=== PATIENT | female | born 1950 | race Caucasian/White ===

== ENCOUNTER 2020-01-09 08:48 | Emergency (ER) | payer MEDICARE, OTHER, SELFPAY ==
[2020-01-09 09:00] VITALS: BP 109/38; PULSE 118; RESP 20; TEMP 36.7; O2SAT 100
[2020-01-09 09:20] VITALS: BP 98/40
--- NOTE | 2020-01-09 09:23 | ED.GENADULT ---
HPI - General Adult General Chief complaint: Skin/Abscess/Foreign Body Stated complaint: Rash Time Seen by Provider: 01/09/20 09:24 Source: patient History of Present Illness HPI narrative: Patient presents with a worsening rash and hives that started yesterday. Patient states 2 weeks ago she had a surgical procedure which removed a mass from her right vaginal area. Patient states she finished Septra antibiotic 1 week ago. Patient denies any new soaps any new detergents or anything new in her lifestyle. Patient states she has increased swelling to both of her feet which is unusual for her. Patient states she could hardly get on her shoes due to the swelling in her feet. Patient has generalized body aches and discomfort patient states she feels bad. Patient reports she is short of breath at times. Patient denies taking thing [id number]-pnn-osfjotq for her symptoms. Related Data Home Medications Medication Instructions Recorded Confirmed allopurinol 100 mg PO BID 10/06/19 01/09/20 aspirin 81 mg PO DAILY 10/06/19 01/09/20 [id number]-rzpcbgceg-iektjv-zinc tablet PO 10/06/19 cholecalciferol (vitamin D3) unit 10/06/19 [Vitamin D3] docosahexaenoic acid-epa [Fish Oil] 1 cap PO DAILY 10/06/19 01/09/20 omeprazole 40 mg PO BID 10/06/19 01/09/20 paroxetine HCl 10 mg tablet 10 mg PO DAILY 12/30/19 01/09/20 pravastatin 20 mg tablet 20 mg PO DAILY 01/01/20 01/09/20 tramadol 50 mg tablet 50 mg PO Q6H PRN 01/01/20 01/09/20 hydrocodone 10 mg-acetaminophen 1 tablet PO Q8H PRN 01/04/20 01/09/20 325 mg tablet Allergies Allergy/AdvReac Type Severity Reaction Status Date / Time NSAIDS (Non-Steroidal AdvReac Unknown HX KIDNEY Verified 01/09/20 08:59 Anti-Inflamma DISEASE Review of Systems Review of Systems: Narrative: CONSTITUTIONAL: Denies fever, chills, or sweats. EYES: Denies visual changes, redness, or discharge. ENT: Denies rhinorrhea, congestion, sore throat, or otalgia. CARDIOVASCULAR: Denies chest pain, palpitations, reports bilateral edema to both lower extremities. RESPIRATORY: Denies cough or dyspnea. GASTROINTESTINAL: Denies abdominal pain, nausea, vomiting, or diarrhea. GENITOURINARY: Denies dysuria or hematuria. SKIN:-Hives to back and abdomen both lower extremities started yesterday- Reports generalized pain, joint pain, and myalgia. NEUROLOGIC: Denies headache, numbness, or weakness. PSYCHIATRIC: Denies anxiety or depression. [facility] Past Medical History Medical History Anxiety BRCA gene mutation positive GERD (gastroesophageal reflux disease) High cholesterol History of ovarian cancer Hypothyroidism Kidney disease Surgical History Surgical History H/O dilation and curettage H/O foot surgery H/O: hysterectomy History of prophylactic mastectomy of both breasts Hx of BSO (bilateral salpingo-oophorectomy) Family History Family History Sibling Family history of malignant neoplasm of breast in first degree relative Family history of cardiovascular disease Family history of malignant neoplasm of breast Family history of malignant neoplasm of ovary Mother Family history of congestive heart failure Family history of obesity Family history of osteoarthritis Family history of anemia Family history of cardiovascular disease Cerebrovascular accident Father Family history of Parkinson's disease Family history of cardiovascular disease Family history of glaucoma Family history of dementia, Onset Age: 92 Other Depression Family history of arthritis Family history of gout Family history of heart disease in male family member before age 55 Family history of malignant neoplasm Hypertension Social History Social History Smoking status: Former smoker Second hand tobacco smoke expos
== END 2020-01-09 09:30 | disposition short-term general hospital (02) ==
PROVIDERS: Emergency Provider Nurse Practitioner Family; PCP Internal Medicine
DX: L50.0 Allergic urticaria (principal); R60.9 Edema, unspecified; R00.0 Tachycardia, unspecified; R03.1 Nonspecific low blood-pressure reading; Z87.891 Personal history of nicotine dependence; Z90.13 Acquired absence of bilateral breasts and nipples; F41.9 Anxiety disorder, unspecified; K21.9 Gastro-esophageal reflux disease without esophagitis; E78.00 Pure hypercholesterolemia, unspecified; E03.9 Hypothyroidism, unspecified; Z85.43 Personal history of malignant neoplasm of ovary
CPT/HCPCS: 99212; G0463

== ENCOUNTER 2020-07-26 11:02 | Outpatient (CLI) | payer MEDICARE, OTHER, SELFPAY ==
--- NOTE | ~2020-07-26 | US_ITS ---
EXAMINATION: US retroperitoneal duplex ltd DATE: 07/26/2020 11:53 INDICATION: Chronic kidney disease. TECHNIQUE: Multiple grayscale, color Doppler, and pulsed Doppler images of the kidneys and renal soumya yao were obtained. COMPARISON: None. FINDINGS: The aorta peak systolic velocity is 134 cm/s. The right renal artery peak systolic velocity is 344 cm /s in the proximal segment, 170 cm/s in the mid segment, and 198 cm/s in the distal segment. The left renal artery peak systolic velocity is 146 cm/s in the proximal segment, 118 cm/s in the mid segment , and 146 cm/s in the distal segment. IMPRESSION: 1. Significantly elevated peak systolic velocities in the proximal right renal artery consistent wit h hemodynamically significant stenosis of >50-60%. 2. No significant stenosis at the left renal artery. Reviewed, dictated and finalized at location A. IMPRESSION: 1. Significantly elevated peak systolic velocities in the proximal right renal artery consistent with hemodynamically significant stenosis of >50-60%. 2. No significant stenosis at the left renal artery.
== END 2020-07-26 11:03 | disposition home or self-care (01) ==
PROVIDERS: Visit Provider Internal Medicine
DX: N18.3 Chronic kidney disease, stage 3 (moderate) (principal); N17.8 Other acute kidney failure
CPT/HCPCS: 93976

== ENCOUNTER 2020-08-29 08:03 | Outpatient (CLI) | payer MEDICARE, OTHER, SELFPAY ==
--- NOTE | ~2020-08-29 | MR_ITS ---
EXAMINATION: MR lumbar spine wo con DATE: 08/29/2020 09:15 INDICATION: Radiculopathy, lumbosacral region. TECHNIQUE: Magnetic resonance imaging (MRI) of the lumbar spine was performed without intravenous con trast. Sequences included sagittal T2-weighted FSE, sagittal T2-weighted FS FSE, sagittal T1-weighted FSE, and axial T2-weighted FSE. COMPARISON: Lumbar spine MRI 11/18/2017 FINDINGS: There is 3 mm retrolisthesis of L2 on L3, 3 mm anterolisthesis of L3 on L4, and 5 mm dina listhesis of L4 on L5. Vertebral body heights are normal. There is severely decreased disc height at T11-T12 and mildly decreased disc height at L3-L4 and L4-L5. The distal spinal cord signal intensity is normal. The conus medullaris is at L1. The following disc levels are specifically discussed: L1-L2: The disc is bulging. There is moderate bilateral facet joint osteoarthritis. There is no neura l foraminal stenosis. There is mild central canal stenosis. L2-L3: The disc is bulging and has an annular fissure. There is moderate right and mild left facet camelia int osteoarthritis. There is mild right and moderate left neural foraminal stenosis. There is mild ce ntral canal stenosis. L3-L4: The disc is bulging. There is severe bilateral facet joint osteoarthritis. There is mild bilat eral neural foraminal stenosis. There is mild central canal stenosis. L4-L5: The disc does not extend beyond the endplate margin. There is severe bilateral facet joint ost eoarthritis. There is mild bilateral neural foraminal stenosis. There is mild central canal stenosis. L5-S1: The disc does not extend beyond the endplate margin. There is severe bilateral facet joint ost eoarthritis. There is no neural foraminal stenosis. There is no central canal stenosis. IMPRESSION: 1. Moderate lumbar spondylosis, stable from 11/18/2017. Reviewed, dictated and finalized at location A.
== END 2020-08-29 08:04 | disposition home or self-care (01) ==
PROVIDERS: PCP Internal Medicine; Visit Provider Nurse Practitioner Adult Health
DX: M47.816 Spondylosis without myelopathy or radiculopathy, lumbar region (principal)
CPT/HCPCS: 72148

== ENCOUNTER 2021-01-18 08:59 | Outpatient (CLI) | payer MEDICARE, OTHER, SELFPAY | END 2021-01-18 09:00 | disposition home or self-care (01) | LOC: ANHCOVIDVC 08:59 | PROVIDERS: PCP Internal Medicine | DX: Z23 Encounter for immunization (principal) | CPT/HCPCS: 0001A; 91300 ==

== ENCOUNTER 2021-02-08 09:08 | Outpatient (CLI) | payer MEDICARE, OTHER, SELFPAY | END 2021-02-08 09:09 | LOC: ANHCOVIDVC 09:08 | PROVIDERS: PCP Internal Medicine | DX: Z23 Encounter for immunization (principal) | CPT/HCPCS: 0002A; 91300 ==

== ENCOUNTER 2021-03-16 12:09 | Outpatient (CLI) | payer MEDICARE, OTHER, SELFPAY ==
--- NOTE | ~2021-03-16 | CT_ITS ---
EXAMINATION: CT abdomen pelvis wo con EXAM DATE: 03/16/2021 12:35 INDICATION: R10.84 - Generalized abdominal pain. TECHNIQUE: Spiral CT of the abdomen and pelvis was performed without contrast. Axial, coronal and s agittal images of the abdomen and pelvis were reviewed. The dose-length product (DLP) for this exami nation was 926.38 mGy-cm. The exposure was tailored according to patient size (auto mA exposure cont rol), and iterative reconstruction (ASIR) was used as additional dose reduction technique. Comparison is made to prior examination from 10/15/2019. FINDINGS: The liver, spleen, adrenal glands and pancreas are unremarkable. Gallbladder is unremarkab le. No biliary obstruction. Portal and splenic veins are patent. Kidneys enhance symmetrically. T here is no hydronephrosis. The uterus is not identified and has likely been surgically resected. Again there is a slightly hyperdense 2.3 by 2.1 cm right peroneal mass, probably Bartholin's gland pr oteinaceous cyst. Stability goes against this being Bartholin's gland tumor. The bladder is unremark able. There is no retroperitoneal or pelvic lymphadenopathy. There is moderate to severe scattered arteriosclerotic disease. Abdominal aorta is normal in caliber. The appendix is not positively visualized. There is no pericecal inflammatory change to suggest appe ndicitis. There is mild sigmoid predominant colonic diverticulosis. There is no adjacent inflammator y change to suggest diverticulitis. The stomach and small bowel are unremarkable. There is expected amount of colonic stool. No free intraperitoneal gas. The heart is normal in size. There are no pericardial or pleural effusions. The lung bases are unremarkable. There are no osteoblastic or ost eolytic lesions identified. Advanced lower lumbar facet arthropathy. IMPRESSION: 1. No acute intra-abdominal findings. 2. Stable right peroneal mass, likely Bartholin's gland origin. 3. Colonic diverticulosis. Reviewed, dictated and finalized at location B.
[2021-03-16 13:27] LABS: Basophils Percent Auto 0.3 % (0.2-1.2); Eosinophils Absolute Auto 0.4 K/mm3 (0-0.3); Eosinophils Percent Auto 5.8 % (0-4.4); Hematocrit 36.7 % (37.0-47.0); Hemoglobin 12.1 g/dL (12.0-15.0); Immature Granulocyte Absolute 0.02 K/mm3 (0.00-0.031); Immature Granulocyte Percent A 0.3 % (0-0.5); Lymphocytes Absolute Auto 2.16 K/mm3 (0.9-3.2); Lymphocytes Percent Auto 32.1 % (18.3-44.2); Mean Corpuscular Hemoglobin 29.3 pg (26-34); Mean Corpuscular Volume 88.9 fl (80-100); Monocytes Absolute Auto 0.4 K/mm3 (0.1-0.6); Monocytes Percent Auto 5.6 % (2.6-8.5); Neutrophils Absolute Auto 3.8 K/mm3 (1.3-6.7); Neutrophils Percent Auto 55.9 % (45.5-73.1); Platelet Count Result 213 k/mm3 (150-375); Red Blood Count 4.13 M/mm3 (4.2-5.4); Red Cell Distribution Width 14.6 % (11.5-14.5); White Blood Count 6.7 K/mm3 (4.5-10.0)
[2021-03-16 13:42] LABS: Alanine Aminotransferase 14 U/L (4-35); Albumin Level 4.6 g/dL (3.5-5.1); Alkaline Phosphatase 82 U/L (38-126); Anion Gap 5 mmol/L (8-16); Aspartate Amino Transferase 26 U/L (14-36); Bilirubin,Total 0.6 mg/dL (0.2-1.3); Blood Urea Nitrogen 28 mg/dL (7-17); Calcium 9.9 mg/dL (8.4-10.2); Carbon Dioxide 30 mmol/L (22-30); Chloride 104 mmol/L (98-107); Cholesterol 112 mg/dL (0-200); Estimated Glomerular Filt Rate 37; Glucose 98 mg/dL (65-105); HDL Direct 37 mg/dL; Potassium 5.1 mmol/L (3.4-5.0); Sodium 139 mmol/L (137-145); Triglycerides 131 mg/dL (<150)
[2021-03-16 13:53] LABS: LDL Cholesterol Direct 51 mg/dL
== END 2021-03-16 12:10 | disposition home or self-care (01) ==
PROVIDERS: PCP Internal Medicine; Visit Provider Internal Medicine
DX: E78.2 Mixed hyperlipidemia (principal); F33.0 Major depressive disorder, recurrent, mild; R10.84 Generalized abdominal pain; R73.01 Impaired fasting glucose; K57.30 Diverticulosis of large intestine without perforation or abscess without bleeding
CPT/HCPCS: 36415; 74176; 80053; 80061; 85025

== ENCOUNTER → 2021-04-08 03:54 | Outpatient (CLI) | payer MEDICARE, OTHER, SELFPAY ==
[2021-04-08 19:46] LABS: SARS-CoV-2 RNA PCR Negative
== END ==
PROVIDERS: PCP Internal Medicine; Visit Provider Internal Medicine Gastroenterology
DX: Z01.812 Encounter for preprocedural laboratory examination (principal); Z20.822 Contact with and (suspected) exposure to COVID-19
CPT/HCPCS: C9803; U0003; U0005

== ENCOUNTER 2021-04-11 02:04 | Day surgery (SDC) | payer MEDICARE, OTHER, SELFPAY ==
[2021-04-07 09:41] VITALS: BMI 31.3
[2021-04-11 08:48] VITALS: BP 140/63; PULSE 73; RESP 20; TEMP 35.9; O2SAT 99; BMI 31.5
--- NOTE | 2021-04-11 08:58 | WPDANESEPPF ---
Anes - Initial Pre Proc Eval Procedure: Operation Date: 04/11/21 10:00 Proposed Procedures p Esophagogastroduodenoscopy - Miguel Davison MD Date/Time: 04/11/21 08:58 Surgeon: Miguel Davison MD Pre Op Diagnosis: peptic ulcer disease Patient Data Age: 70 Gender: F Height: 5 ft 5 in Weight: 86 kg Last Vital Signs Temp 96.6 F L 04/11/21 08:48 Pulse 73 04/11/21 08:48 Resp 20 04/11/21 08:48 BP 140/63 04/11/21 08:48 Pulse Ox 99 04/11/21 08:48 Allergies Allergy/AdvReac Type Severity Reaction Status Date / Time NSAIDS (Non-Steroidal AdvReac Unknown HX KIDNEY Verified 03/16/21 11:12 Anti-Inflamma DISEASE Home Medications Medication Instructions Recorded Confirmed Type aspirin 81 mg PO DAILY 10/06/19 04/07/21 History nnsqziu-rgnnoptuw-gzghev-zinc 1 tablet PO TID 10/06/19 04/07/21 History hydrocodone 5 mg-acetaminophen 325 1 tablet PO TID PRN 07/11/20 04/07/21 History mg tablet tramadol 50 mg tablet 100 mg PO BID PRN tablet 07/11/20 04/07/21 History sucralfate 1 gram tablet 1 g PO BID #60 tablet 03/16/21 04/07/21 Rx gabapentin 300 mg capsule 300 mg PO TID #360 cap 03/31/21 04/07/21 Rx allopurinol 200 mg PO DAILY 04/07/21 04/07/21 History cholecalciferol (vitamin D3) 100 mcg PO DAILY 04/07/21 04/07/21 History icosapent ethyl [Vascepa] 4 g PO BID 04/07/21 04/07/21 History levothyroxine [Synthroid] 88 mcg PO DAILY 04/07/21 04/07/21 History omeprazole 40 mg PO BID 04/07/21 04/07/21 History paroxetine HCl 10 mg PO DAILY 04/07/21 04/07/21 History rosuvastatin [Crestor] 20 mg PO DAILY 04/07/21 04/07/21 History trazodone 100 mg PO HS 04/07/21 04/07/21 History Patient hx anesthesia problems: none Family hx anesthesia problems: none PMFSH Past Medical History Medical History (Updated 03/16/21 @ 14:21 by Newton Godwin MD) Acquired hypothyroidism Anxiety BRCA gene mutation positive Chronic obstructive pulmonary disease Chronic pain syndrome Essential hypertension Gastroesophageal reflux disease Generalized anxiety disorder GERD (gastroesophageal reflux disease) High cholesterol History of gout History of ovarian cancer Hx of ovarian cancer Hypothyroidism Kidney disease Mixed hyperlipidemia GISSEL (obstructive sleep apnea) Osteoporosis PAD (peripheral artery disease) 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 Pulmonary emphysema Stage 3 chronic kidney disease Vitamin D deficiency, unspecified Surgical History Surgical History H/O dilation and curettage H/O foot surgery H/O: hysterectomy History of prophylactic mastectomy of both breasts Hx of BSO (bilateral salpingo-oophorectomy) Family History Family History Sibling Family history of malignant neoplasm of breast in first degree relative Family history of cardiovascular disease Family history of malignant neoplasm of breast Family history of malignant neoplasm of ovary Mother Family history of congestive heart failure Family history of obesity Family history of osteoarthritis Family history of anemia Family history of cardiovascular disease Cerebrovascular accident Father Family history of Parkinson's disease Family history of cardiovascular disease Family history of glaucoma Family history of dementia, Onset Age: 92 Other Depression Family history of arthritis Family history of gout Family history of heart disease in male family member before age 55 Family history of malignant neoplasm Hypertension Social History Social History (Updated 03/16/21 @ 11:15 by Idalmis Estevez MA) Smoking packs per day: 1 Smoking cigarettes per day: 20.0 Years smoked: 10 Smoking pack-years: 10.00 Smoking status: Former smoker Tobacco type: cigarettes Second hand tobacco smoke exposure: Yes Smoking end date: 11/11/77 Alcohol intake: n
--- NOTE | 2021-04-11 08:58 | WPDGICN ---
Assessment and Plan Assessment and plan (1) Anxiety: Code(s): F41.9 - Anxiety disorder, unspecified Status: Acute (2) Generalized abdominal pain: Code(s): R10.84 - Generalized abdominal pain Status: Acute Assessment and Plan: Patient has ongoing history of generalized abdominal pain. She has narcotics which she takes for back pain which she states it alleviates her epigastric pain. she currently notices significant bloating associated with this pain which could represent change in bowel habits. (3) Epigastric abdominal pain: Code(s): R10.13 - Epigastric pain Status: Acute Assessment and Plan: Patient has a history of abdominal pain but epigastric pain has worsened over the last month. For this reason EGD is requested. Further recommendations will be given after endoscopy patient does give a history of acid reflux disease and been maintained on proton pump inhibitor until this point. (4) Hx of ovarian cancer: Code(s): Z85.43 - Personal history of malignant neoplasm of ovary Status: Acute GI Consult Note Consult date/time: 04/11/21 08:58 HPI: Jacki Oreilly is a 70 year old female presents for EGD. Seen in evaluation at the request Dr. Modi. Patient has a long history of abdominal discomfort. Over the last 1 month abdominal pain is worsened predominantly in the epigastric area. She states that she has a history of acid reflux which will affect her voice maker or she has substernal burning. Currently takes proton pump inhibitor. she denies any bleeding or weight loss. A CT scan was performed recently was unremarkable. Patient has a past history of ovarian cancer resected for a cure. She has a history of generalized anxiety disorder. An EGD has been requested will be performed today. Review of Systems Review of Systems: All systems reviewed & are unremarkable except as noted in HPI and below PMFSH Past Medical History Medical History (Updated 04/11/21 @ 09:03 by Miguel Davison MD) Acquired hypothyroidism Anxiety BRCA gene mutation positive Chronic obstructive pulmonary disease Chronic pain syndrome Essential hypertension Gastroesophageal reflux disease Generalized anxiety disorder GERD (gastroesophageal reflux disease) High cholesterol History of gout History of ovarian cancer Hx of ovarian cancer Hypothyroidism Kidney disease Mixed hyperlipidemia GISSEL (obstructive sleep apnea) Osteoporosis PAD (peripheral artery disease) 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 Pulmonary emphysema Stage 3 chronic kidney disease Vitamin D deficiency, unspecified Surgical History Surgical History H/O dilation and curettage H/O foot surgery H/O: hysterectomy History of prophylactic mastectomy of both breasts Hx of BSO (bilateral salpingo-oophorectomy) Family History Family History Sibling Family history of malignant neoplasm of breast in first degree relative Family history of cardiovascular disease Family history of malignant neoplasm of breast Family history of malignant neoplasm of ovary Mother Family history of congestive heart failure Family history of obesity Family history of osteoarthritis Family history of anemia Family history of cardiovascular disease Cerebrovascular accident Father Family history of Parkinson's disease Family history of cardiovascular disease Family history of glaucoma Family history of dementia, Onset Age: 92 Other Depression Family history of arthritis Family history of gout Family history of heart disease in male family member before age 55 Family history of malignant neoplasm Hypertension Social History Social History (Updated 03/16/21 @ 11:15 by Idalmis Estevez MA) Smoking packs per day: 1 Smoking cigarettes per
[2021-04-11] MEDS: LACTATED RINGERS 1,000 ML 150 ML IV CONT (09:03)
[2021-04-11] MEDS: BENZOCAINE (*SP) 60 ML SPRAY CAN (HURRICAINE) 1 SPRAY MUCOUS MEM (09:59)
[2021-04-11 10:07] VITALS: BP 131/64; PULSE 61; RESP 17; O2SAT 100
[2021-04-11 10:17] VITALS: BP 113/61; PULSE 62; RESP 21; O2SAT 97
[2021-04-11 10:27] VITALS: BP 109/83; PULSE 63; RESP 26; O2SAT 100
[2021-04-11 10:37] VITALS: BP 151/65; PULSE 67; RESP 25; O2SAT 100
== END 2021-04-11 10:53 | disposition home or self-care (01) ==
PROVIDERS: PCP Internal Medicine; Visit Provider Internal Medicine Gastroenterology
PROC: 0DJ08ZZ Inspection of Upper Intestinal Tract, Via Natural or Artificial Opening Endoscopic (ICD-10-PCS; CPT 43235; principal; 2021-04-11 10:00)
DX: R10.13 Epigastric pain (principal); F41.9 Anxiety disorder, unspecified; I12.9 Hypertensive chronic kidney disease with stage 1 through stage 4 chronic kidney disease, or unspecified chronic kidney disease; N18.30 Chronic kidney disease, stage 3 unspecified; R10.84 Generalized abdominal pain; Z85.43 Personal history of malignant neoplasm of ovary; E55.9 Vitamin D deficiency, unspecified; E03.9 Hypothyroidism, unspecified; E78.2 Mixed hyperlipidemia; M81.0 Age-related osteoporosis without current pathological fracture; G47.33 Obstructive sleep apnea (adult) (pediatric); J43.9 Emphysema, unspecified; I73.9 Peripheral vascular disease, unspecified; Z87.891 Personal history of nicotine dependence; Z79.82 Long term (current) use of aspirin; K27.9 Peptic ulcer, site unspecified, unspecified as acute or chronic, without hemorrhage or perforation; E66.9 Obesity, unspecified; Z68.31 Body mass index [BMI] 31.0-31.9, adult
CPT/HCPCS: 43239; 87081; J2001; J2704; J7120

== ENCOUNTER 2021-08-11 10:33 | Emergency (ER) | payer MEDICARE, OTHER, SELFPAY ==
[2021-08-11 11:13] VITALS: BP 150/54; PULSE 94; RESP 20; TEMP 36.8; O2SAT 98
--- NOTE | 2021-08-11 12:20 | ED.FEMALEGU ---
HPI - Female Genitourinary General Chief complaint: Urogenital-Female Stated complaint: URINARY PROBLEM Time Seen by Provider: 08/11/21 12:15 Source: patient, RN notes reviewed and old records reviewed Mode of arrival: ambulatory Limitations: no limitations History of Present Illness HPI Narrative: 71-year-old female who presents to [facility] with complaints of suprapubic tenderness and pressure and flank discomfort bilaterally starting yesterday afternoon, Patient denies any burning with urination but has been having frequency and urgency with her urine stream. Patient reports taking Azo for her symptoms. Patient also states that she has kidney disease and can not take any NSAIDS and is ovarian cancer survivor. Patient denies any known fevers, chills or sweats, no nausea or vomiting or diarrhea. She reports no vaginal discharge or any itching, denies any concern for STD exposure. MD elicited complaint: dysuria, UTI and flank pain Related Data Home Medications Medication Instructions Recorded Confirmed aspirin 81 mg PO DAILY 10/06/19 08/11/21 suafocv-ytnuveskn-jhmkpv-zinc 1 tablet PO TID 10/06/19 08/11/21 hydrocodone 5 mg-acetaminophen 325 1 tablet PO TID PRN 07/11/20 08/11/21 mg tablet tramadol 50 mg tablet 100 mg PO BID PRN tablet 07/11/20 08/11/21 allopurinol 200 mg PO DAILY 04/07/21 08/11/21 cholecalciferol (vitamin D3) 100 mcg PO DAILY 04/07/21 08/11/21 icosapent ethyl [Vascepa] 4 g PO BID 04/07/21 08/11/21 paroxetine HCl 10 mg PO DAILY 04/07/21 08/11/21 rosuvastatin [Crestor] 20 mg PO DAILY 04/07/21 08/11/21 trazodone 100 mg PO HS 04/07/21 08/11/21 mecobalamin (vitamin B12) See Rx Instructions .ROUTE .COMPLEX 07/31/21 omeprazole 40 mg PO DAILY 08/11/21 08/11/21 Allergies Allergy/AdvReac Type Severity Reaction Status Date / Time NSAIDS (Non-Steroidal AdvReac Unknown HX KIDNEY Verified 07/31/21 08:03 Anti-Inflamma DISEASE Review of Systems Review of Systems: CONSTITUTIONAL: Denies fever, chills, or sweats. EYES: Denies visual changes, redness, or discharge. ENT: Denies rhinorrhea, congestion, sore throat, or otalgia. CARDIOVASCULAR: Denies chest pain, palpitations, or edema. RESPIRATORY: Denies cough or dyspnea. GASTROINTESTINAL: Reports suprapubic abdominal pain, nausea, vomiting, or diarrhea. GENITOURINARY: Positive dysuria or hematuria. SKIN: Denies rash or itching. MUSCULOSKELETAL:Positive for bilateral flank back pain, joint pain, or myalgia. NEUROLOGIC: Denies headache, numbness, or weakness. PSYCHIATRIC Positive history of anxiety or depression. 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
== END 2021-08-11 12:30 | disposition home or self-care (01) ==
PROVIDERS: Emergency Provider Registered Nurse
DX: N39.0 Urinary tract infection, site not specified (principal); Z87.891 Personal history of nicotine dependence; E03.9 Hypothyroidism, unspecified; J44.9 Chronic obstructive pulmonary disease, unspecified; I10 Essential (primary) hypertension; K21.9 Gastro-esophageal reflux disease without esophagitis; E78.00 Pure hypercholesterolemia, unspecified; M10.9 Gout, unspecified; E78.2 Mixed hyperlipidemia; G47.33 Obstructive sleep apnea (adult) (pediatric); M81.0 Age-related osteoporosis without current pathological fracture; I73.9 Peripheral vascular disease, unspecified; M19.90 Unspecified osteoarthritis, unspecified site; I12.9 Hypertensive chronic kidney disease with stage 1 through stage 4 chronic kidney disease, or unspecified chronic kidney disease; N18.30 Chronic kidney disease, stage 3 unspecified; E55.9 Vitamin D deficiency, unspecified
CPT/HCPCS: 81003; 87086; 87088; 99213; G0463

== ENCOUNTER 2021-09-14 07:59 | Outpatient (CLI) | payer MEDICARE, OTHER, SELFPAY ==
--- NOTE | 2021-09-14 08:00 | ECG_ITS ---
Measurements Intervals Unity Rate: 63 P: 72 VA: 155 QRS: 13 QRSD: 87 T: 90 QT: 397 QTc: 407 Interpretive Statements SINUS RHYTHM POSSIBLE LEFT ATRIAL ENLARGEMENT BORDERLINE R WAVE PROGRESSION, ANTERIOR LEADS BORDERLINE T WAVE ABNORMALITY- HIGH LATERAL LEADS BASELINE ARTIFACT- I, AVL, V4-V6 BORDERLINE ECG Electronically Signed On 09-14-2021 9:05:53 CDT by Armin Nunez D.O.
== END 2021-09-14 08:00 | disposition home or self-care (01) ==
LOC: ANHSURGERY 08:03
PROVIDERS: Visit Provider Surgery Plastic and Reconstructive Surgery
DX: E78.00 Pure hypercholesterolemia, unspecified (principal); Z01.818 Encounter for other preprocedural examination; R94.31 Abnormal electrocardiogram [ECG] [EKG]
CPT/HCPCS: 93005

== ENCOUNTER 2021-09-15 03:05 | Day surgery (SDC) | payer MEDICARE, OTHER, SELFPAY ==
--- NOTE | 2021-09-13 08:48 | PC.NURSE ---
Report to the Outpatient Waiting Room, entrance under the green pavilion located off [facility], at time ___1100_ on date _[id number]_. OR Time: __1300__. - You and your visitor will be asked a series of questions to screen for COVID 19 for your protection. - A mask is required within the hospital. - Only one visitor is allowed at this time. Patient visitors will be guided where to wait when not with patient. Preoperative COVID Testing Requirements: No COVID Test needed if: (proof is required; if not received patient will have Rapid Test prior to entry) - Patient has received COVID Vaccine at least 14 days prior to procedure date or - Patient has positive COVID test result within last 90 days of surgery date. COVID Test needed if above criteria is not met If not COVID vaccinated a COVID test must be conducted within 72 hours of surgery and patient is asked to isolate self from time of testing until procedure. You will go to the [facility] for your COVID testing. The [facility] site is located at the corner of [address] [facility]. You will only be called if COVID results are positive and your surgeon may reschedule your elective surgery date. Patients may have clear liquids (water, carbonated beverages, clear teas, apple juice) until 3 hours prior to surgery with a maximum of 20 ounces. - No food from midnight until time of surgery - Infants may have breast milk until 4 hours before surgery, infant formula 6 hours prior to surgery. - Children will be allowed to drink immediately following surgery. If applicable, please bring a bottle or sippy cup to assist with drinking. Juice, water, soda, and popsicles are readily available. For infants on formula, please bring formula the day of surgery. Pacifiers are allowed. Take the following medications with a SIP of water the morning of surgery: _Levothyroxine, Gabapentin, Paroxetine, and pain med if needed._ Medications to discontinue per physician __Stop all vitamins now. Date to take last dose Please no make-up, nail kosovan, hairspray, perfume, deodorant, or body powder the day of surgery. No jewelry (including any body piercings) or valuables the day of surgery, leave them at home. Please take a shower or bath the night before, or the morning of, surgery with an antibacterial soap. Wear comfortable, loose fitting clothing. Children are encouraged to wear pajamas. - Jewelry must be removed prior to entering the operating room. Rings and piercings that are not removed may be cut off. - The hospital will not accept responsibility for valuables. - Please leave all valuables, including medications, at home the day of surgery. If you are going home after surgery, a licensed tractor trailer driver must drive you home. - NO public transportation without another adult. - We recommend that an adult stay with you for 24 hours following discharge. - We also recommend that you do not drive, make important decision, drink alcoholic beverages, or take any drugs that were not prescribed by your health care provider for at least 24 hours after your discharge time. For Pediatric surgeries, we recommend two adults accompany the child home (only one inside the building at this time). Follow any additional instructions given to you from your surgeon. Telephone instructions given to ___Patient_and asked if any additional questions and then verbalized understanding. Patient advised to call surgeon office or pre surgery nurse liaison [phone] if any additional questions.
[2021-09-13 08:55] VITALS: BMI 32.8
[2021-09-15] VITALS (8 sets, daily range): BP systolic 131–156; BP diastolic 54–67; PULSE 74–104; RESP 12–18; TEMP 36.4; O2SAT 97–100
[2021-09-15] MEDS: LACTATED RINGERS 1,000 ML 30 ML IV CONT ×2 (11:29→16:38)
[2021-09-15 11:54] LABS: Urine Cotinine NEGATIVE
--- NOTE | 2021-09-15 13:28 | WPDHPUPDATE1 ---
History and Physical Update Update Date/Time: 09/15/21 13:28 History and Physical has been reviewed, including an updated exam of the patient. There are NO changes in the patient's condition. Risks, benefits, and alternatives have been discussed and questions answered. Patient agrees to proceed with procedure.
--- NOTE | 2021-09-15 13:28 | SUR.PREOP ---
PATIENT UPDATED ON TIME DELAY
--- NOTE | 2021-09-15 13:44 | W.PM.PROC2 ---
Procedure Note - Detailed Date of Procedure 09/15/21 Pre-op Diagnosis hx of mastectomy Post-op Diagnosis same Procedure Performed 1. Bilateral breast fat grafting 2. Bilateral breast capsulorrhaphy. 3. Bilateral breast implant exchange Surgeon Alexy Coy MD Indications Bilateral mastectomy in 2003 with reconstruction (records unavailable). From her description it sounds like she had mastectomy and tissue expanders placed however never returned for permanent implants. July 22, 2017 bilateral exchange of tissue expanders for final implants, bilateral capsulorrhaphy, and fat grafting to bilateral breast by Dr. Mike. Findings Bilateral Natrelle Cohesive Silicone Implants 700cc Right - REF# [id number] SN [id number] Left - REF# [id number] SN [id number] Fat grafting Right - 110 cc Left - 90 cc Description of Procedure Preoperatively the risks, benefits, alternatives discussed in extensive detail. Want her to be very realistic about the risks involved as well as expectations. She understands the risk of implant loss which would lead to the need for replacement of expanders and further expansion with loss of reconstructive results. All questions answered to her satisfaction, she voiced an understanding. She would like proceed. She was taken to the operating room placed supine on the operating room table. Anesthesia provided by anesthesiology and prepped and draped in a standard sterile fashion. Surgical time-out was taken. 1% lidocaine and 0.25% Marcaine with epinephrine was used anesthetize as a field block. A thorough abdominal examination was completed. Stab incisions were made with 18 gauge needle and I tumesced with a tumescent solution. Once adequate time for hemostasis I completed suction lipectomy the 3 mm multi hole cannula into a gravity separation canister. We allowed for adequate separation for the central portion of adipose tissue. I then used a 1.2 mm cannula to inject of multiple planes and passes the subcutaneous tissue for fat grafting bilateral. Fifteen blade used to excise the previous scar and dissection was continued down until the implant capsule was identified. This was incised. Implant was removed. I completed a medial capsulotomy and laterally I did popcorn capsulorrhaphy. Copiously irrigated with saline solution on TUR tubing and verified strict hemostasis. I then irrigated with triple antibiotic Betadine solution. Wash my gloves. Using a no-touch technique and a Lopez funnel the implant was introduced into the pocket. This was closed using 2-0 Vicryl followed by 3-0 stratafix and running subcuticular 4-0 Monocryl and tissue glue. She was awoke and taken the PACU without difficulty. All instrument sponge counts were correct at the end of the case. Estimated Blood Loss 20 Drains No Packing No Pathology none sent Complications No immediate complications Condition stable Disposition PACU
--- NOTE | 2021-09-15 14:09 | WPDANESEPPF ---
Anes - Initial Pre Proc Eval Procedure: Operation Date: 09/15/21 13:00 Proposed Procedures p Bilateral Breast Implant Exchange - Alexy Coy MD s with Fat Grafting - Alexy Coy MD Date/Time: 09/15/21 14:09 Surgeon: Alexy Coy MD Pre Op Diagnosis: hx of mastectomy Patient Data Age: 71 Gender: F Height: 1.64 m Weight: 89.4 kg Last Vital Signs Pulse 74 09/15/21 11:22 Resp 18 09/15/21 11:22 BP 131/58 L 09/15/21 11:22 Pulse Ox 99 09/15/21 11:22 Allergies Allergy/AdvReac Type Severity Reaction Status Date / Time NSAIDS (Non-Steroidal AdvReac Unknown HX KIDNEY Verified 09/15/21 11:25 Anti-Inflamma DISEASE Home Medications Medication Instructions Recorded Confirmed Type aspirin 81 mg PO DAILY 10/06/19 09/15/21 History uazqcpj-aeawzfzkx-jsfvcx-zinc 1 tablet PO TID 10/06/19 09/15/21 History hydrocodone 5 mg-acetaminophen 325 1 tablet PO TID PRN 07/11/20 09/15/21 History mg tablet tramadol 50 mg tablet 100 mg PO BID PRN tablet 07/11/20 09/15/21 History gabapentin 300 mg capsule 300 mg PO TID #360 cap 03/31/21 09/15/21 Rx cholecalciferol (vitamin D3) 100 mcg PO DAILY 04/07/21 09/15/21 History rosuvastatin [Crestor] 20 mg PO DAILY 04/07/21 09/15/21 History trazodone 100 mg PO HS 04/07/21 09/15/21 History levothyroxine 88 mcg tablet 88 mcg PO DAILY #90 tablet 06/26/21 09/15/21 Rx mecobalamin (vitamin B12) See Rx Instructions .ROUTE .COMPLEX 07/31/21 09/15/21 History omeprazole 40 mg PO DAILY 08/11/21 09/15/21 History allopurinol 100 mg tablet 200 mg PO DAILY #180 tablet 08/24/21 09/15/21 Rx paroxetine HCl 10 mg tablet 10 mg PO DAILY #90 tablet 08/24/21 09/15/21 Rx sucralfate 1 gram tablet 1 g PO BID #60 tablet 08/24/21 09/15/21 Rx docusate sodium 100 mg capsule 100 mg PO BID #14 cap 08/30/21 09/15/21 Rx ondansetron HCl 4 mg tablet 4 mg PO Q6H PRN #30 tablet 08/30/21 09/15/21 Rx icosapent ethyl 1 gram capsule 4 g PO BID #360 cap 09/14/21 09/15/21 Rx Laboratory Tests 09/15/21 11:25 Cotinine Negative Patient hx anesthesia problems: none Family hx anesthesia problems: none Results Review: All pre-operative results and documents have been reviewed as part of the pre-operative evaluation. 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 Pulmonary emphysema Stage 3 chronic kidney disease Vitamin D deficiency, unspecified Surgical History Surgical History H/O dilation and curettage H/O foot surgery H/O: hysterectomy History of breast surgery History of prophylactic mastectomy of both breasts Hx of BSO (bilateral salpingo-oophorectomy) Family History Family History Sibling Family history of malignant neoplasm of breast in first degree relative Family history of cardiovascular disease Family history of malignant neoplasm of breast Family history of malignant neoplasm of ovary Mother Family history of congestive heart failure Family history of obesity Family history of osteoarthritis Family history of anemia Family history of cardiovascular disease Cerebrovascular accident Father Family history of Parkinson's disease Family history of cardiovascular disease Family history of glaucoma Family history of dementia, Onset Age: 92 Other
[2021-09-15] MEDS: ceFAZolin 2 GM/D5W 50 ML 2 GM/50 ML BAG IVPB (14:35)
[2021-09-15] MEDS: LACTATED RINGERS IRRIG 1,000 ML, LIDOCAINE HCL 1% LOCAL INJ 50 ML, EPINEPHrine HCL INJ ... INFILTRATE (15:19)
[2021-09-15] MEDS: LIDO 1%/EPINEPHRINE 1:100,000 50 ML VIAL 30 ML INFILTRATE (16:04)
[2021-09-15] MEDS: BUPIVACAINE HCL 0.25% PF 30 ML VIAL INFILTRATE (16:09)
[2021-09-15] MEDS: fentaNYL CITRATE INJ (*CRX) 100 MCG/2 ML VIAL 25 MCG IV PUSH ×2 (17:09→17:16)
[2021-09-15] MEDS: oxyCODONE HCL (*CRX) 5 MG TAB IR PO (18:17)
== END 2021-09-15 18:50 | disposition home or self-care (01) ==
PROVIDERS: Visit Provider Surgery Plastic and Reconstructive Surgery
PROC: (CPT 19342; principal; 2021-09-15 13:00)
PROC: (CPT 15769; 2021-09-15 13:00)
DX: Z42.1 Encounter for breast reconstruction following mastectomy (principal); Z85.3 Personal history of malignant neoplasm of breast; Z90.13 Acquired absence of bilateral breasts and nipples; N64.89 Other specified disorders of breast; N64.4 Mastodynia; E03.9 Hypothyroidism, unspecified; J44.9 Chronic obstructive pulmonary disease, unspecified; F41.1 Generalized anxiety disorder; G47.33 Obstructive sleep apnea (adult) (pediatric); I10 Essential (primary) hypertension; G89.4 Chronic pain syndrome; K21.9 Gastro-esophageal reflux disease without esophagitis; M10.9 Gout, unspecified; M81.0 Age-related osteoporosis without current pathological fracture; I73.9 Peripheral vascular disease, unspecified; G62.9 Polyneuropathy, unspecified; E55.9 Vitamin D deficiency, unspecified; N18.30 Chronic kidney disease, stage 3 unspecified; Z79.82 Long term (current) use of aspirin; Z79.899 Other long term (current) drug therapy; Z85.43 Personal history of malignant neoplasm of ovary; R91.8 Other nonspecific abnormal finding of lung field; Z15.01 Genetic susceptibility to malignant neoplasm of breast; G47.9 Sleep disorder, unspecified; Z87.891 Personal history of nicotine dependence
CPT/HCPCS: 11970; 80307; A9270; C1789; J0171; J0690; J1100; J1170; J1580; J2250; J2405; J2704; J3010; J7120

== ENCOUNTER → 2021-10-27 04:02 | Outpatient (CLI) | payer MEDICARE, OTHER, SELFPAY ==
[2021-10-31 16:09] LABS: SARS-CoV-2 RNA PCR Negative
== END ==
PROVIDERS: PCP Internal Medicine; Visit Provider Internal Medicine
DX: R68.89 Other general symptoms and signs (principal); Z20.822 Contact with and (suspected) exposure to COVID-19
CPT/HCPCS: C9803; U0003; U0005

== ENCOUNTER 2021-11-01 12:03 | Emergency (ER) | payer MEDICARE, OTHER, SELFPAY ==
--- NOTE | ~2021-11-01 | XR_ITS ---
EXAMINATION: XR chest 2V 11/01/2021 13:05 INDICATION: Cough for one week. History of bronchitis. PROCEDURE: PA and lateral views of the chest COMPARISON: 11/18/2017 FINDINGS: The lungs are clear. The cardiomediastinal silhouette is within normal limits. There are no pleural effusions. There is no pneumothorax suspected. IMPRESSION: 1: NO ACUTE CARDIOPULMONARY DISEASE. Reviewed, dictated and finalized at location A. APPLICATIONS COORDINATOR
[2021-11-01 12:09] VITALS: BP 145/93; PULSE 93; RESP 20; TEMP 36.4; O2SAT 100
--- NOTE | 2021-11-01 13:29 | ED.URI ---
HPI - URI/Sore Throat General Chief Complaint: Upper Respiratory Infection Stated Complaint: cough History of Present Illness HPI Narrative: This is a 71-year-old female that presents to the emergency room that is complaining shortness of breath, cough congestion and not feeling well. Patient states is been going on for the past 4 to 5 days. Patient denies any fever no nausea no vomiting and/or diarrhea Related Data Home Medications Medication Instructions Recorded Confirmed aspirin 81 mg PO DAILY 10/06/19 09/27/21 ulbrfmu-bkfmdeplu-cyfsss-zinc 1 tablet PO TID 10/06/19 09/27/21 tramadol 50 mg tablet 100 mg PO BID PRN tablet 07/11/20 09/27/21 cholecalciferol (vitamin D3) 100 mcg PO DAILY 04/07/21 09/27/21 rosuvastatin [Crestor] 20 mg PO DAILY 04/07/21 09/27/21 trazodone 100 mg PO HS 04/07/21 09/27/21 mecobalamin (vitamin B12) See Rx Instructions .ROUTE .COMPLEX 07/31/21 09/27/21 omeprazole 40 mg PO DAILY 08/11/21 09/27/21 Allergies Allergy/AdvReac Type Severity Reaction Status Date / Time NSAIDS (Non-Steroidal AdvReac Unknown HX KIDNEY Verified 09/27/21 08:38 Anti-Inflamma DISEASE Review of Systems Review of Systems: Cough congestion and shortness of breath All systems reviewed & are unremarkable except as noted in HPI and below PMFSH Past Medical History Medical History (Updated 11/01/21 @ 13:36 by Ronel Sullivan NP) Acquired hypothyroidism Anxiety BRCA gene mutation positive Chronic obstructive pulmonary disease Chronic pain syndrome Displacement of breast implant Essential hypertension Gastroesophageal reflux disease Generalized anxiety disorder GERD (gastroesophageal reflux disease) High cholesterol History of gout History of ovarian cancer Hx of ovarian cancer Hypothyroidism Kidney disease Mixed hyperlipidemia GISSEL (obstructive sleep apnea) Osteoporosis PAD (peripheral artery disease) 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 Pulmonary emphysema Stage 3 chronic kidney disease Vitamin D deficiency, unspecified Surgical History Surgical History (Updated 09/27/21 @ 08:36 by Giovana Carlson MA) H/O dilation and curettage H/O foot surgery H/O: hysterectomy History of breast surgery History of prophylactic mastectomy of both breasts Hx of bilateral mastectomy Hx of BSO (bilateral salpingo-oophorectomy) Family History Family History (Reviewed 09/18/21 @ 13:17 by Pippa Elizabeth [facility]) Sibling Family history of malignant neoplasm of breast in first degree relative Family history of cardiovascular disease Family history of malignant neoplasm of breast Family history of malignant neoplasm of ovary Mother Family history of congestive heart failure Family history of obesity Family history of osteoarthritis Family history of anemia Family history of cardiovascular disease Cerebrovascular accident Father Family history of Parkinson's disease Family history of cardiovascular disease Family history of glaucoma Family history of dementia, Onset Age: 92 Other Depression Family history of arthritis Family history of gout Family history of heart disease in male family member before age 55 Family history of malignant neoplasm Hypertension Social History Social History (Updated 09/27/21 @ 08:37 by Giovana Carlson MA) Smoking packs per day: 1 Smoking cigarettes per day: 20.0 Years smoked: 10 Smoking pack-years: 10.00 Smoking status: Former smoker Tobacco type: cigarettes Second hand tobacco smoke exposure: Yes Smoking end date: 11/11/77 Alcohol intake: never Substance use: never Substance use type: does not use Last use: 1996 Gender identity (if verbalized by the patient): Female Spiritual care concerns: No Comments At time as signature, I have reviewed and agree with nursing past medical, social, surgical and family history. Please see nursing chart for furthe
== END 2021-11-01 13:44 | disposition home or self-care (01) ==
PROVIDERS: Emergency Provider Nurse Practitioner Family; PCP Internal Medicine
DX: J06.9 Acute upper respiratory infection, unspecified (principal); Z20.822 Contact with and (suspected) exposure to COVID-19; Z87.891 Personal history of nicotine dependence; E03.9 Hypothyroidism, unspecified; J44.9 Chronic obstructive pulmonary disease, unspecified; K21.9 Gastro-esophageal reflux disease without esophagitis; E78.00 Pure hypercholesterolemia, unspecified; M10.9 Gout, unspecified; E78.2 Mixed hyperlipidemia; G47.33 Obstructive sleep apnea (adult) (pediatric); M81.0 Age-related osteoporosis without current pathological fracture; I73.9 Peripheral vascular disease, unspecified; I12.9 Hypertensive chronic kidney disease with stage 1 through stage 4 chronic kidney disease, or unspecified chronic kidney disease; N18.30 Chronic kidney disease, stage 3 unspecified; Z90.13 Acquired absence of bilateral breasts and nipples; Z85.43 Personal history of malignant neoplasm of ovary
CPT/HCPCS: 71046; 87426; 87804; 99213; C9803; G0463

== ENCOUNTER 2021-11-13 08:22 | Emergency (ER) | payer MEDICARE, OTHER, SELFPAY ==
[2021-11-13 08:34] VITALS: BP 155/59; PULSE 91; RESP 16; TEMP 36.6; O2SAT 99
--- NOTE | 2021-11-13 09:06 | ED.URI ---
HPI - URI/Sore Throat General Chief Complaint: Upper Respiratory Infection Stated Complaint: cough tight chest runny nose Time Seen by Provider: 11/13/21 09:06 History of Present Illness HPI Narrative: Patient had an appointment with her primary care provider this morning which was canceled. Patient presents with a cough that has been going on for about 4 weeks. No shortness of breath and no chest pain. Patient states she was seen in [facility] 2 weeks ago and given prednisone and inhaler which she did feel better while she was on the prednisone but her symptoms have returned. No high fever. Related Data Home Medications Medication Instructions Recorded Confirmed aspirin 81 mg PO DAILY 10/06/19 11/13/21 tramadol 50 mg tablet 100 mg PO BID PRN tablet 07/11/20 11/13/21 rosuvastatin [Crestor] 20 mg PO DAILY 04/07/21 11/13/21 trazodone 100 mg PO HS 04/07/21 09/27/21 Allergies Allergy/AdvReac Type Severity Reaction Status Date / Time NSAIDS (Non-Steroidal AdvReac Unknown HX KIDNEY Verified 09/27/21 08:38 Anti-Inflamma DISEASE Review of Systems Review of Systems: CONSTITUTIONAL: Denies chills, or sweats. Reports fever and generalized body aches EYES: Denies visual changes, redness, or discharge. ENT: Denies otalgia. Reports nasal congestion runny nose and sore throat CARDIOVASCULAR: Denies chest pain, palpitations, or edema. RESPIRATORY: Denies dyspnea. Reports occasional cough GASTROINTESTINAL: Denies abdominal pain, nausea, vomiting, or diarrhea. GENITOURINARY: Denies dysuria or hematuria. SKIN: Denies rash or itching. MUSCULOSKELETAL: Denies back pain, joint pain, or myalgia. Reports generalized body aches NEUROLOGIC: Denies headache, numbness, or weakness. PSYCHIATRIC: Denies anxiety or depression. [facility] Past Medical History Medical History (Updated 11/13/21 @ 09:18 by DEENA Goldsmith) Acquired hypothyroidism Anxiety BRCA gene mutation positive Chronic obstructive pulmonary disease Chronic pain syndrome Displacement of breast implant Essential hypertension Gastroesophageal reflux disease Generalized anxiety disorder GERD (gastroesophageal reflux disease) High cholesterol History of gout History of ovarian cancer Hx of ovarian cancer Hypothyroidism Kidney disease Mixed hyperlipidemia GISSEL (obstructive sleep apnea) Osteoporosis PAD (peripheral artery disease) 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 Pulmonary emphysema Stage 3 chronic kidney disease Vitamin D deficiency, unspecified Surgical History Surgical History (Updated 09/27/21 @ 08:36 by Giovana Carlson MA) H/O dilation and curettage H/O foot surgery H/O: hysterectomy History of breast surgery History of prophylactic mastectomy of both breasts Hx of bilateral mastectomy Hx of BSO (bilateral salpingo-oophorectomy) Family History Family History Sibling Family history of malignant neoplasm of breast in first degree relative Family history of cardiovascular disease Family history of malignant neoplasm of breast Family history of malignant neoplasm of ovary Mother Family history of congestive heart failure Family history of obesity Family history of osteoarthritis Family history of anemia Family history of cardiovascular disease Cerebrovascular accident Father Family history of Parkinson's disease Family history of cardiovascular disease Family history of glaucoma Family history of dementia, Onset Age: 92 Other Depression Family history of arthritis Family history of gout Family history of heart disease in male family member before age 55 Family history of malignant neoplasm Hypertension Social History Social History (Updated 09/27/21 @ 08:37 by Giovana Carlson MA) Smoking packs per day: 1 Smoking cigarettes per day: 20.0 Years smoked: 10 Smoking pack-years: 10.00
== END 2021-11-13 09:30 | disposition home or self-care (01) ==
PROVIDERS: Emergency Provider Nurse Practitioner Family
DX: J32.9 Chronic sinusitis, unspecified (principal); J40 Bronchitis, not specified as acute or chronic; Z87.891 Personal history of nicotine dependence; E03.9 Hypothyroidism, unspecified; J44.9 Chronic obstructive pulmonary disease, unspecified; K21.9 Gastro-esophageal reflux disease without esophagitis; E78.00 Pure hypercholesterolemia, unspecified; M10.9 Gout, unspecified; E78.2 Mixed hyperlipidemia; G47.33 Obstructive sleep apnea (adult) (pediatric); M81.0 Age-related osteoporosis without current pathological fracture; I73.9 Peripheral vascular disease, unspecified; I12.9 Hypertensive chronic kidney disease with stage 1 through stage 4 chronic kidney disease, or unspecified chronic kidney disease; N18.30 Chronic kidney disease, stage 3 unspecified; E55.9 Vitamin D deficiency, unspecified; Z85.43 Personal history of malignant neoplasm of ovary; G62.0 Drug-induced polyneuropathy; T45.1X5A Adverse effect of antineoplastic and immunosuppressive drugs, initial encounter; Z90.13 Acquired absence of bilateral breasts and nipples
CPT/HCPCS: 99213; G0463

== ENCOUNTER → 2021-12-05 07:39 | Outpatient (CLI) | payer MEDICARE, OTHER, SELFPAY ==
[2021-12-05 15:46] LABS: Influenza A QL RT-PCR Negative (Negative); Influenza B QL RT-PCR Negative (Negative); SARS-CoV-2 RNA PCR Negative
== END ==
PROVIDERS: PCP Internal Medicine; Visit Provider Internal Medicine
DX: R68.89 Other general symptoms and signs (principal); Z20.822 Contact with and (suspected) exposure to COVID-19
CPT/HCPCS: 87502; C9803; U0003; U0005

== ENCOUNTER 2022-01-30 12:15 | Emergency (ER) | payer MEDICARE, OTHER, SELFPAY ==
--- NOTE | ~2022-01-30 | XR_ITS ---
EXAMINATION: XR chest 2V 01/30/2022 12:45 INDICATION: Chronic cough PROCEDURE: 2 view chest COMPARISON: 11/01/2021 FINDINGS: The lungs are clear. The cardiomediastinal silhouette is within normal limits. There are no pleural effusions. There is no pneumothorax suspected. IMPRESSION: 1: NO ACUTE CARDIOPULMONARY DISEASE. Reviewed, dictated and finalized at location A.
[2022-01-30 12:22] VITALS: BP 149/72; PULSE 106; RESP 20; TEMP 36.3; O2SAT 98
--- NOTE | 2022-01-30 12:26 | ED.URI ---
HPI - URI/Sore Throat General Chief Complaint: Upper Respiratory Infection Stated Complaint: Cough/Chest Congestion Time Seen by Provider: 01/30/22 12:31 Source: patient and RN notes reviewed Mode of arrival: ambulatory Limitations: no limitations History of Present Illness HPI Narrative: 71-year-old female presented for complaint of cough worsening over the past 3 days. Since 10/2021 she has had 2 or 3 episodes of bronchitis, has taken antibiotics, steroids and Tessalon Perles. She states she has been taking Tessalon Perles this time but last night the pain from coughing was so severe she wanted to be evaluated. She states this cough is different. Endorses bilateral rib pain and occasional wheezing. Denies shortness of breath, nausea, vomiting, diarrhea, fever or chills. MD elicited complaint: cough Related Data Home Medications Medication Instructions Recorded Confirmed aspirin 81 mg PO DAILY 10/06/19 01/30/22 Allergies Allergy/AdvReac Type Severity Reaction Status Date / Time NSAIDS (Non-Steroidal AdvReac Unknown HX KIDNEY Verified 01/30/22 12:32 Anti-Inflamma DISEASE Review of Systems Review of Systems: CONSTITUTIONAL: Denies malaise, chills, sweats, fever EYES: Denies visual changes, redness, or discharge ENT: Reports rhinorrhea, denies congestion, sinus pain, otalgia, sore throat CARDIOVASCULAR: Denies chest pain, palpitations, edema RESPIRATORY: Reports cough, post nasal drainage. Denies dyspnea GASTROINTESTINAL: Denies abdominal pain, nausea, vomiting, diarrhea SKIN: Denies rash or itching MUSCULOSKELETAL: Denies myalgia NEUROLOGIC: Denies headache PMFSH Past Medical History Medical History Acquired hypothyroidism Anxiety BRCA gene mutation positive Chronic obstructive pulmonary disease Chronic pain syndrome Displacement of breast implant Essential hypertension Gastroesophageal reflux disease Generalized anxiety disorder GERD (gastroesophageal reflux disease) High cholesterol History of gout History of ovarian cancer Hx of ovarian cancer Hypothyroidism Kidney disease Mixed hyperlipidemia GISSEL (obstructive sleep apnea) Osteoporosis PAD (peripheral artery disease) 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 Pulmonary emphysema Stage 3 chronic kidney disease Vitamin D deficiency, unspecified Surgical History Surgical History H/O dilation and curettage H/O foot surgery H/O: hysterectomy History of breast surgery History of prophylactic mastectomy of both breasts Hx of bilateral mastectomy Hx of BSO (bilateral salpingo-oophorectomy) Family History Family History Sibling Family history of malignant neoplasm of breast in first degree relative Family history of cardiovascular disease Family history of malignant neoplasm of breast Family history of malignant neoplasm of ovary Mother Family history of congestive heart failure Family history of obesity Family history of osteoarthritis Family history of anemia Family history of cardiovascular disease Cerebrovascular accident Father Family history of Parkinson's disease Family history of cardiovascular disease Family history of glaucoma Family history of dementia, Onset Age: 92 Other Depression Family history of arthritis Family history of gout Family history of heart disease in male family member before age 55 Family history of malignant neoplasm Hypertension Social History Social History Smoking packs per day: 1 Smoking cigarettes per day: 20.0 Years smoked: 10 Smoking pack-years: 10.00 Smoking status: Former smoker Tobacco type: cigarettes Second hand tobacco smoke exposure: Yes Smoking end date: 11/11/77 Cara
[2022-01-30 12:32] VITALS: BP 149/72; PULSE 106; RESP 20; TEMP 36.3; O2SAT 98
== END 2022-01-30 13:19 | disposition home or self-care (01) ==
PROVIDERS: Emergency Provider Nurse Practitioner Family; PCP Internal Medicine
DX: J40 Bronchitis, not specified as acute or chronic (principal); Z87.891 Personal history of nicotine dependence; E03.9 Hypothyroidism, unspecified; J44.9 Chronic obstructive pulmonary disease, unspecified; K21.9 Gastro-esophageal reflux disease without esophagitis; E78.00 Pure hypercholesterolemia, unspecified; M10.9 Gout, unspecified; E78.2 Mixed hyperlipidemia; G47.33 Obstructive sleep apnea (adult) (pediatric); M81.0 Age-related osteoporosis without current pathological fracture; M19.90 Unspecified osteoarthritis, unspecified site; I12.9 Hypertensive chronic kidney disease with stage 1 through stage 4 chronic kidney disease, or unspecified chronic kidney disease; N18.30 Chronic kidney disease, stage 3 unspecified; Z85.43 Personal history of malignant neoplasm of ovary; Z85.89 Personal history of malignant neoplasm of other organs and systems; Z79.82 Long term (current) use of aspirin
CPT/HCPCS: 71046; 99213; G0463

== ENCOUNTER 2022-04-04 10:20 | Outpatient (CLI) | payer MEDICARE, OTHER, SELFPAY ==
--- NOTE | ~2022-04-04 | XR_ITS ---
EXAMINATION: XR hip BI 2V w AP pelvis DATE: 04/04/2022 10:37 INDICATION: Chronic pelvic pain. TECHNIQUE: An anteroposterior view of the pelvis and 2 views of each hip were obtained. COMPARISON: Left hip radiographs 11/18/2017 FINDINGS: Bone alignment is normal. No fracture. There is mild bilateral hip osteoarthritis. There is mild lumbar spondylosis. There are surgical clips in the retroperitoneum and pelvis. IMPRESSION: 1. Mild bilateral hip osteoarthritis. Reviewed, dictated and finalized at location A.
== END 2022-04-04 10:21 | disposition home or self-care (01) ==
PROVIDERS: PCP Internal Medicine; Visit Provider Internal Medicine
DX: M16.0 Bilateral primary osteoarthritis of hip (principal)
CPT/HCPCS: 73521

== ENCOUNTER 2022-05-08 08:02 | Outpatient (CLI) | payer MEDICARE, OTHER, SELFPAY ==
--- NOTE | ~2022-05-08 | CT_ITS ---
EXAMINATION: CT diagnostic chest wo con DATE: 05/08/2022 09:55 INDICATION: Chronic cough since November. Shortness of breath. History of ovarian cancer TECHNIQUE: Computed tomography (CT) of the chest was performed without intravenous contrast. Automate d exposure control and iterative reconstruction technique were employed. Exam dose: 412.64 mGy-cm to jl exam DLP. COMPARISON: 01/30/2022 2 view chest FINDINGS: No pulmonary infiltrate or consolidation or pulmonary mass density. Normal heart size. Coronary artery calcifications are noted. There is aortic and great vessel calcifi cation; no thoracic aortic aneurysm. No hilar or mediastinal mass lesion or lymphadenopathy. No pericardial or pleural effusion. Normal morphology of the adrenal glands. Bilateral breast implants. No axillary lymphadenopathy. No suspicious osteolytic or osteoblastic lesions. Diffuse idiopathic skeletal hyperostosis of the tho racic spine. Prominent degenerative disc disease in the lower cervical spine. IMPRESSION: No pulmonary infiltrate or consolidation or pulmonary mass lesion Bilateral breast implants Aortic and coronary and great vessel atherosclerosis Diffuse idiopathic skeletal hyperostosis of the thoracic spine Reviewed, dictated and finalized at [facility]. Reviewed, dictated and finalized at location [facility].
--- NOTE | 2022-05-08 16:37 | WPDSIXMINUTE ---
Six Minute Walk Procedure Procedure Performed Pulmonary Stress Test (6 min walk) Six Minute Walk Six Minute Walk: This is a 6 minute walk test. The test was performed and interpreted in accordance with the 2014 ERS/ATS task force guidelines. Findings: The patient's resting room air oxygen saturation measured by pulse oximetry was 97% and heart rate was 73 bpm. Patient ambulated for 213 meters and oxygen saturation remained 95 to 99%. Heart rate at the end of the study was 93 bpm. The patient did not qualify for supplemental oxygen at rest or with ambulation. There are no prior studies for comparison.
--- NOTE | 2022-05-08 16:38 | WPDPFTINT ---
PFT Procedure Performed PFT Procedure Performed Spirometry with Pre/Post Bronchodilator Plethysmography (Lung Vol) Diffusing Cap (DLCO) Flow Vol Loop PFT Interpretation This is a pulmonary function test with pre and post-bronchodilator spirometry, plethysmography and diffusing capacity. The test was performed and results interpreted in accordance with the 2019 and 2005 ATS/ERS Task Force guidelines respectively using the Global Lung Function Initiative-2012 reference equations. Patient demonstrated good effort and cooperation. Reproducibility criteria were met. The quality of the pre bronchodilator spirometry maneuver was Grade A and post bronchodilator spirometry maneuver was Grade A. Findings: Spirometry: The contour the inspiratory and expiratory flow tracing are normal. The pre bronchodilator FVC is 2.90 L, 86% predicted. The pre bronchodilator FEV1 is 2.19 L, 85% predicted. The pre bronchodilator FEV1: FVC ratio is 76%. The post bronchodilator FVC is 2.97 L, representing a 2% increase. The post bronchodilator FEV1 is 2.29 L, representing a 5% increase. The post bronchodilator FEV1: FVC ratio 77%. Plethysmography: The total lung capacity is 4.42 L, 75% predicted. Functional residual capacity is 1.73 L, 57% predicted. The residual volume is 1.48 L, 68% predicted. Diffusing capacity: The diffusing capacity unadjusted for hemoglobin and carboxyhemoglobin is 14.2, 61% predicted. The diffusing capacity adjusted for alveolar volume is 3.47, 82% predicted. In comparison to previous pulmonary function testing on 07/01/2015 the post bronchodilator FVC is unchanged from 3.13 L to 2.97 L. The post bronchodilator FEV1 is unchanged from 2.47 to 2.29 L. The total lung capacity is unchanged from 4.81 L to 4.42 L. The functional residual capacity is unchanged from 1.82 L to 1.73 L. The residual volume is unchanged from 1.60 L to 1.48 L. The diffusing capacity unadjusted for hemoglobin and carboxyhemoglobin is unchanged from 13.7 to 14.2. The diffusing capacity adjusted for alveolar volume is unchanged from 3.82 to 3.47. Impression: The spirometry is normal without evidence of an obstructive abnormality. There is no significant improvement after inhaling a single dose of albuterol. The lung volumes are normal. The diffusing capacity unadjusted for hemoglobin and carboxyhemoglobin is mildly decreased and normalizes when adjusted for alveolar volume. When compared to prior pulmonary function testing on 07/01/2018 there has been no significant change in the FVC, FEV1, total lung capacity, residual volume, functional residual capacity and diffusing capacity.
== END 2022-05-08 08:03 | disposition home or self-care (01) ==
PROVIDERS: PCP Internal Medicine; Visit Provider Nurse Practitioner Family
DX: J43.9 Emphysema, unspecified (principal); R06.00 Dyspnea, unspecified; R05.3 Chronic cough
CPT/HCPCS: 71250; 94060; 94618; 94726; 94729

== ENCOUNTER 2022-09-22 11:22 | Emergency (ER) | payer MEDICARE, OTHER, SELFPAY ==
--- NOTE | 2022-09-22 11:26 | ED.URI ---
HPI - URI/Sore Throat General Chief Complaint: Upper Respiratory Infection Stated Complaint: cough Time Seen by Provider: 09/22/22 11:34 Source: patient, RN notes reviewed and old records reviewed Mode of arrival: ambulatory Limitations: no limitations History of Present Illness HPI Narrative: 72-year-old female presents to the [facility] with complaints of a cough. Has had a common crossed for several months but over the last 10 days it has increased. Denies fevers, chest pain. Denies any abdominal pain, nausea, vomiting. Related Data Home Medications Medication Instructions Recorded Confirmed aspirin 81 mg chewable tablet 81 mg PO DAILY 10/06/19 09/22/22 Allergies Allergy/AdvReac Type Severity Reaction Status Date / Time NSAIDS (Non-Steroidal AdvReac Unknown HX KIDNEY Verified 09/22/22 11:35 Anti-Inflamma DISEASE Review of Systems Review of Systems: All systems reviewed & are unremarkable except as noted in HPI and below Constitutional: Constitutional: Reports no additional constitutional complaints, Denies chills and Denies fever(s) Eyes: Eyes: Reports no additional eye complaints ENT: Reports system reviewed and no additional complaints, except as documented Cardiovascular: Cardiovascular: Reports no additional cardiovascular complaints Respiratory: Respiratory: Reports as per HPI, Denies chest congestion, Reports cough and Denies dyspnea Gastrointestinal: Gastrointestinal: Reports no additional gastrointestinal complaints Musculoskeletal: Musculoskeletal: Reports no additional musculoskeletal complaints Integumentary/Breasts: Skin/Breast: Reports system reviewed and no additional complaints, except as docu Neurologic: Reports system reviewed and no additional complaints, except as documented Psychiatric: Psychiatric: Reports no additional psychiatric complaints Allergic/Immunologic: Allergic/Immunologic: Reports no additional allergic/immunologic complaints [facility] Past Medical History Medical History Acquired hypothyroidism Anxiety BRCA gene mutation positive Chronic obstructive pulmonary disease Chronic pain syndrome Displacement of breast implant Essential hypertension Gastroesophageal reflux disease Generalized anxiety disorder GERD (gastroesophageal reflux disease) High cholesterol History of gout History of ovarian cancer Hx of ovarian cancer Hypothyroidism Kidney disease Mixed hyperlipidemia GISSEL (obstructive sleep apnea) Osteoporosis PAD (peripheral artery disease) 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 Pulmonary emphysema Stage 3 chronic kidney disease Vitamin D deficiency, unspecified Surgical History Surgical History H/O dilation and curettage H/O foot surgery H/O: hysterectomy History of breast surgery History of prophylactic mastectomy of both breasts Hx of bilateral mastectomy Hx of BSO (bilateral salpingo-oophorectomy) Family History Family History Sibling Family history of malignant neoplasm of breast in first degree relative Family history of cardiovascular disease Family history of malignant neoplasm of breast Family history of malignant neoplasm of ovary Mother Family history of congestive heart failure Family history of obesity Family history of osteoarthritis Family history of anemia Family history of cardiovascular disease Cerebrovascular accident Father Family history of Parkinson's disease Family history of cardiovascular disease Family history of glaucoma Family history of dementia, Onset Age: 92 Other Depression Family history of arthritis Family history of gout Family history of heart disease in male family member before age 55 Family history of malignant neoplasm Hypertension Social Hist
[2022-09-22 11:30] VITALS: BP 135/81; PULSE 99; RESP 20; TEMP 36.6; O2SAT 98
== END 2022-09-22 12:06 | disposition home or self-care (01) ==
PROVIDERS: Emergency Provider Nurse Practitioner; PCP Internal Medicine
DX: J40 Bronchitis, not specified as acute or chronic (principal); Z87.891 Personal history of nicotine dependence; E03.9 Hypothyroidism, unspecified; J44.9 Chronic obstructive pulmonary disease, unspecified; I10 Essential (primary) hypertension; K21.9 Gastro-esophageal reflux disease without esophagitis; E78.00 Pure hypercholesterolemia, unspecified; M10.9 Gout, unspecified; Z85.43 Personal history of malignant neoplasm of ovary; E78.2 Mixed hyperlipidemia; F41.1 Generalized anxiety disorder; G47.33 Obstructive sleep apnea (adult) (pediatric); M81.0 Age-related osteoporosis without current pathological fracture; G62.0 Drug-induced polyneuropathy; M19.90 Unspecified osteoarthritis, unspecified site; I12.9 Hypertensive chronic kidney disease with stage 1 through stage 4 chronic kidney disease, or unspecified chronic kidney disease; N18.30 Chronic kidney disease, stage 3 unspecified; Z79.82 Long term (current) use of aspirin; Z90.13 Acquired absence of bilateral breasts and nipples
CPT/HCPCS: 99213; G0463

== ENCOUNTER 2022-12-17 00:47 | Day surgery (SDC) | payer MEDICARE, OTHER, SELFPAY ==
[2022-12-10 11:26] VITALS: BMI 34.8
--- NOTE | ~2022-12-17 | XR_ITS ---
EXAMINATION: XR_ENEMABAC_CR DATE: 12/17/2022 10:14 INDICATION: Colon polyps. Incomplete colonoscopy. TECHNIQUE: A commercial lines account manager radiograph was obtained. A catheter was inserted into the patient's rectum. Contra st was infused by gravity. Gas was infused by hand pump. Fluoroscopic spot images and conventional ra diographs were obtained. Fluoroscopy exposure time was 0.3 minutes. The total number of images was 34 . COMPARISON: CT abdomen and pelvis 05/08/2022 FINDINGS: There are multiple diverticula in the colon. There is no abnormal mass or stricture. IMPRESSION: 1. No evidence of malignancy. Reviewed, dictated and finalized at location [facility]. NSICS TEAM DIRECTOR
[2022-12-17 07:23] VITALS: BP 147/75; PULSE 85; RESP 18; TEMP 36.3; O2SAT 97
--- NOTE | 2022-12-17 07:27 | PM.HPGS ---
History of Present Illness History of Present Illness Consent: Risks, benefits, and alternatives have been discussed and questions answered. Patient agrees to proceed with procedure. Chief complaint: family hx colon polyps Narrative: Jacki Oreilly is a 72 year old female Presents for screening colonoscopy. Patient's family history is significant for family member with colon polyps. Patient herself has had colon polyps in the past. Most recent colonoscopy 2017 was unremarkable. Patient's reports her current weight appetite bowel movements are normal. She denies abdominal pain. She has had no bleeding. Patient currently undergoing evaluation for chronic cough. Apparently it is nonproductive. Workup in progress by pulmonary service. She does have an underlying history of GE reflux. However symptoms are well controlled on omeprazole 40mg p.o. b.i.d.. She denies any heartburn, she has no diff stay ADRIANA. She has had no bleeding. Review of Systems Review of Systems: Review of systems noncontributory. 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 Pulmonary emphysema Stage 3 chronic kidney disease Vitamin D deficiency, unspecified Surgical History Surgical History H/O dilation and curettage H/O foot surgery H/O: hysterectomy History of breast surgery History of prophylactic mastectomy of both breasts Hx of bilateral mastectomy Hx of BSO (bilateral salpingo-oophorectomy) Family History Family History Sibling Family history of malignant neoplasm of breast in first degree relative Family history of cardiovascular disease Family history of malignant neoplasm of breast Family history of malignant neoplasm of ovary Mother Family history of congestive heart failure Family history of obesity Family history of osteoarthritis Family history of anemia Family history of cardiovascular disease Cerebrovascular accident Father Family history of Parkinson's disease Family history of cardiovascular disease Family history of glaucoma Family history of dementia, Onset Age: 92 Other Depression Family history of arthritis Family history of gout Family history of heart disease in male family member before age 55 Family history of malignant neoplasm Hypertension Social History Social History (Updated 10/15/22 @ 09:05 by Latricia Lim [facility]) Smoking packs per day: 1 Smoking cigarettes per day: 20.0 Years smoked: 10 Smoking pack-years: 10.00 Smoking status: Former smoker Tobacco type: cigarettes Second hand tobacco smoke exposure: Yes Smoking end date: 11/11/78 Alcohol intake: former Substance use: never Substance use type: does not use Last use: 1996 Lack of Transportation: No Lack of Food: Never True Current Housing: I Have Housing Concerned About Future Housing: No Difficulty Paying Gas/Electric Bills: No Difficulty Paying for Meds: No Currently Unemployed: No Education: High School Diploma/GED Difficulty w/ Childcare or Family Care: No Living arrangements: with family Gender identity (if verbalized by the patient): Female Spiritual care concerns: No Meds Home Medications and Allergies H
[2022-12-17] MEDS: LACTATED RINGERS 1,000 ML 150 ML IV CONT (07:31)
--- NOTE | 2022-12-17 07:57 | WPDANESEPPF ---
Anes - Initial Pre Proc Eval Procedure: Operation Date: 12/17/22 08:30 Proposed Procedures p Screening Colonoscopy - Miguel Davison MD Date/Time: 12/17/22 07:57 Surgeon: Miguel Davison MD Pre Op Diagnosis: family hx colon polyps Patient Data Age: 72 Gender: F Height: 1.64 m Weight: 93.5 kg Last Vital Signs Temp 36.3 C L 12/17/22 07:23 Pulse 85 12/17/22 07:23 Resp 18 12/17/22 07:23 BP 147/75 H 12/17/22 07:23 Pulse Ox 97 12/17/22 07:23 Allergies Allergy/AdvReac Type Severity Reaction Status Date / Time NSAIDS (Non-Steroidal AdvReac Unknown HX KIDNEY Verified 12/17/22 07:15 Anti-Inflamma DISEASE Home Medications Medication Instructions Recorded Confirmed Type allopurinol 100 mg tablet 200 mg PO DAILY #180 tabs 03/05/22 12/10/22 Rx paroxetine HCl 10 mg tablet 10 mg PO DAILY #90 tabs 03/05/22 12/10/22 Rx omeprazole 40 mg capsule,delayed 40 mg PO BID #180 caps 03/30/22 12/10/22 Rx release levothyroxine 88 mcg tablet 88 mcg PO DAILY #90 tabs 06/20/22 12/10/22 Rx (Synthroid) rosuvastatin 20 mg tablet (Crestor) 20 mg PO DAILY #90 tabs 06/20/22 12/10/22 Rx trazodone 100 mg tablet 100 mg PO HS #90 tabs 09/14/22 12/10/22 Rx albuterol sulfate 90 mcg/actuation 2 puff inhalation QID PRN 09/22/22 12/10/22 Rx aerosol inhaler shortness of breath or wheezing #6.7 grams feiuycn-qgewtsbkd-tvmhni-zinc 1 tablet PO TID 10/15/22 12/10/22 History tablet cholecalciferol (vitamin D3) 50 50 mcg PO DAILY 10/15/22 12/10/22 History mcg (2,000 unit) capsule gabapentin 300 mg capsule 300 mg PO TID #360 caps 10/15/22 12/10/22 Rx mecobalamin (vitamin B12) 1,000 1,000 mcg PO DAILY 10/15/22 12/10/22 History mcg lozenges icosapent ethyl 1 gram capsule 2 g PO BID #360 caps 10/26/22 12/10/22 Rx (Vascepa) fluticasone propionate 50 2 spray intranasal BID 12/10/22 12/10/22 History mcg/actuation nasal spray,suspension (Flonase Allergy Relief) Patient hx anesthesia problems: none Family hx anesthesia problems: none Results Review: All pre-operative results and documents have been reviewed as part of the pre-operative evaluation. 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 Pulmonary emphysema Stage 3 chronic kidney disease Vitamin D deficiency, unspecified Surgical History Surgical History H/O dilation and curettage H/O foot surgery H/O: hysterectomy History of breast surgery History of prophylactic mastectomy of both breasts Hx of bilateral mastectomy Hx of BSO (bilateral salpingo-oophorectomy) Family History Family History Sibling Family history of malignant neoplasm of breast in first degree relative Family history of cardiovascular disease Family history of malignant neoplasm of breast Family history of malignant neoplasm of ovary Mother Family history of congestive heart failure Family history of obesity Family history of osteoarthritis Family history of anemia Family history of cardiovascular disease Cerebrovascular accident Father Family history of Parkinson's disease Family history of cardiovascular disease Family history of glaucoma Family history of dementia, Onset Age: 92 Other Depression F
[2022-12-17 08:48] VITALS: BP 115/65; PULSE 69; RESP 14; O2SAT 96
[2022-12-17 08:58] VITALS: BP 121/68; PULSE 74; RESP 19; O2SAT 100
[2022-12-17 09:08] VITALS: BP 125/70; PULSE 72; RESP 21; O2SAT 100
--- NOTE | 2022-12-17 09:19 | SUR.PHASEII ---
Patient being taken to Imaging for a barium enema. Will be discharged from imaging.
== END 2022-12-17 09:20 | disposition home or self-care (01) ==
PROVIDERS: PCP Family Medicine; Visit Provider Internal Medicine Gastroenterology
PROC: 0DJD8ZZ Inspection of Lower Intestinal Tract, Via Natural or Artificial Opening Endoscopic (ICD-10-PCS; CPT 45378; principal; 2022-12-17 08:30)
DX: Z12.11 Encounter for screening for malignant neoplasm of colon (principal); K57.30 Diverticulosis of large intestine without perforation or abscess without bleeding; Z86.010 Personal history of colon polyps; Z83.71 Family history of colonic polyps; E78.2 Mixed hyperlipidemia; G47.33 Obstructive sleep apnea (adult) (pediatric); K21.9 Gastro-esophageal reflux disease without esophagitis; E03.9 Hypothyroidism, unspecified; M81.0 Age-related osteoporosis without current pathological fracture; I12.9 Hypertensive chronic kidney disease with stage 1 through stage 4 chronic kidney disease, or unspecified chronic kidney disease; N18.30 Chronic kidney disease, stage 3 unspecified; E55.9 Vitamin D deficiency, unspecified; G62.0 Drug-induced polyneuropathy; F41.9 Anxiety disorder, unspecified; I73.9 Peripheral vascular disease, unspecified; R05.3 Chronic cough; Z79.51 Long term (current) use of inhaled steroids; Z15.01 Genetic susceptibility to malignant neoplasm of breast; Z85.43 Personal history of malignant neoplasm of ovary; Z87.891 Personal history of nicotine dependence; E66.9 Obesity, unspecified; Z68.34 Body mass index [BMI] 34.0-34.9, adult; Z90.13 Acquired absence of bilateral breasts and nipples; Z53.8 Procedure and treatment not carried out for other reasons
CPT/HCPCS: G0105; 74280; J2704; J7120

== ENCOUNTER 2023-03-26 15:03 | Outpatient (CLI) | payer MEDICARE, OTHER, SELFPAY ==
--- NOTE | ~2023-03-26 | XR_ITS ---
EXAMINATION: XR chest 2V 03/26/2023 15:27 INDICATION: Chronic cough PROCEDURE: 2 view chest COMPARISON: Comparison to multiple prior studies sequentially, with oldest reviewed study dated 06/2018. FINDINGS: The lungs are clear. The cardiomediastinal silhouette is within normal limits. There are no pleural effusions. There is no pneumothorax suspected. IMPRESSION: 1: NO ACUTE CARDIOPULMONARY DISEASE. Reviewed, dictated and finalized at location [facility].
== END 2023-03-26 15:04 | disposition home or self-care (01) ==
PROVIDERS: PCP Family Medicine
DX: R05.3 Chronic cough (principal); Z85.43 Personal history of malignant neoplasm of ovary
CPT/HCPCS: 71046

== ENCOUNTER 2023-06-19 13:26 | Outpatient (CLI) | payer MEDICARE, OTHER, SELFPAY ==
--- NOTE | ~2023-06-19 | CT_ITS ---
EXAMINATION: CT orbit BI wo/w con DATE: 06/19/2023 14:02 INDICATION: Right orbital mass. TECHNIQUE: Computed tomography (CT) of the orbits was performed without and with 75 mL Omnipaque 350 intravenous contrast. Automated exposure control and iterative reconstruction technique were employed . The dose-length product was 380.55 mGy-cm. COMPARISON: None FINDINGS: There are likely changes of ocular lens replacement surgeries. The extraocular muscles are normal. The optic nerves are normal. There is no abnormal mass. There is mild mucosal thickening in t he ethmoid sinuses. IMPRESSION: 1. No abnormal mass. Reviewed, dictated and finalized at location [facility]. IMPRESSION: 1. No abnormal mass.
[2023-06-19 13:49] LABS: Estimated Glomerular Filt Rate 37
== END 2023-06-19 13:27 | disposition home or self-care (01) ==
LOC: ANHIMG 13:28
PROVIDERS: PCP Family Medicine
DX: D31.61 Benign neoplasm of unspecified site of right orbit (principal)
CPT/HCPCS: 70482; Q9967

== ENCOUNTER 2023-12-27 11:56 | Observation (INO) | payer MEDICARE, OTHER, SELFPAY ==
[2023-12-27] VITALS (14 sets, daily range): BP systolic 114–160; BP diastolic 42–79; PULSE 57–71; RESP 12–19; TEMP 35.9–36.6; O2SAT 95–100; BMI 36.3
--- NOTE | ~2023-12-27 | US_ITS ---
EXAMINATION: US right upper quadrant DATE: 12/27/2023 17:44 INDICATION: pain TECHNIQUE: Multiple grayscale and Doppler ultrasound images of the right upper quadrant were obtained . COMPARISON: CT abdomen pelvis 03/16/2021. FINDINGS: Mild pancreatic duct dilation, up to 4 mm at the pancreatic head. The visualized portions o f the pancreas are otherwise normal. Diffusely echogenic liver. No surface nodularity. Normal hepatop etal flow in the main portal vein. The gallbladder is partially distended with no abnormal wall thick ening, pericholecystic fluid or stones. The common bile duct measures 5 mm. There was no sonographic Jalloh sign. IMPRESSION: Mild dilation of the main pancreatic duct, correlate with pancreatic enzymes. Echogenic liver, most commonly due to steatosis but also can be seen with hepatitis and fibrosis. Reviewed, dictated and finalized at location K. ELLANT CHARGE LOADER IMPRESSION: Mild dilation of the main pancreatic duct, correlate with pancreatic enzymes. Echogenic liver, most commonly due to steatosis but also can be seen with hepat itis and fibrosis.
--- NOTE | ~2023-12-27 | MR_ITS ---
EXAMINATION: MR brain/brain stem wo/w con DATE: 12/28/2023 09:52 INDICATION: Headache. Left vertebral artery dissection. TECHNIQUE: Magnetic resonance imaging (MRI) of the brain and brainstem was performed without and with 19 mL Multihance intravenous contrast. Sequences included sagittal and axial T1-weighted SE, axial d iffusion-weighted FS SE, axial T2*-weighted GRE, axial T2-weighted FLAIR, and axial T2-weighted FSE. Postcontrast axial and coronal T1-weighted SE was obtained. Apparent diffusion coefficient (ADC) maps were created. COMPARISON: Head CT and CT angiogram dated 12/27/2023 FINDINGS: There are no areas of restricted diffusion to suggest acute infarction. Small focus of susceptibility artifact at the left thalamus consistent with sequela of chronic microhemorrhage such as in the sett ing of hypertension. No no acute intracranial hemorrhage or abnormal intracranial mass lesion. There are scattered areas of nonspecific increased T2-weighted signal intensity in the cerebral white matte r, predominantly involving the deep and periventricular white matter. There are no intraparenchymal s ignal abnormalities seen on the other pulse sequences. The ventricles are symmetric and normal in siz e. There are no abnormal extra-axial fluid collections. Flow voids are seen in the cerebral arteries on the T2-weighted sequences consistent with their expected patency. Changes of bilateral intraocular lens replacement. Visualized orbits and soft tissues are unremarkable. There are no areas of abnorma l enhancement on the post contrast images. IMPRESSION: 1. No acute intracranial process. 2. Tiny focus of susceptibility artifact at the left thalamus likely sequela of chronic microhemorrha ge such as in the setting of hypertension. 3. Mild scattered periventricular predominant white matter T2 hyperintensity which is within normal l imits for age and likely sequela of chronic small vessel ischemic disease. Reviewed, dictated and finalized at location A. AIGN DIRECTOR IMPRESSION: 1. No acute intracranial process. 2. Tiny focus of susceptibility artifact at the left thalamus likely sequela of chronic microhemorrhage such as in the setting of hypertension. 3. Mild scattered periventricular predominant white matter T2 hyperintensity wh ich is within normal limits for age and likely sequela of chronic small vessel ischemic disease.
--- NOTE | ~2023-12-27 | CT_ITS ---
EXAMINATION: CTA brain carotid DATE: 12/27/2023 19:24 INDICATION: headache TECHNIQUE: Computed tomographic angiography (CTA) of the head was performed without and with 100 mL O mnipaque-350 intravenous contrast. CTA of the neck was performed with intravenous contrast. The dose- length product was 1633.42 mGy-cm. Maximum intensity projection and volume rendered 3D-reconstruction s were created by the technologist on a separate workstation. COMPARISON: Ultrasound carotids 05/29/2019; CT chest 04/30/2022 and 02/28/2018. FINDINGS: CT BRAIN: No acute large vessel infarct, intracranial hemorrhage, mass, or hydrocephalus. CTA HEAD: No large vessel occlusion, aneurysm, high flow vascular malformation, nidus or extravasation. Moderat e cavernous carotid calcifications, without severe stenosis. Hypoplastic left P1 segment, with domina nt flow coming from the left posterior communicating artery. CTA NECK: Aortic arch and proximal great vessels: Normal arch anatomy. Moderate atherosclerotic plaque at the a rch. Suggestion of a weblike defect at the origin of the left vertebral artery, with minimal extensio n into the proximal subclavian artery. Right common carotid, carotid bifurcation, and internal carotid artery: Right common carotid calcific ation causing moderate stenosis. Mild calcification at the bifurcation.There is 0% stenosis of the pr oximal right internal carotid artery relative to normal distal artery lumen diameter (NASCET criteria ). Left common carotid, carotid bifurcation, and internal carotid artery: Left common carotid calcificat ion causing mild stenosis. Mild plaque at the bifurcation.There is 0% stenosis of the proximal left i nternal carotid artery relative to normal distal artery lumen diameter (NASCET criteria). Vertebral arteries: Multifocal areas of narrowing of the left vertebral artery, including severe sten osis at the origin and intradural segments, with luminal irregularity present in the distal portion o f the V3 segment. Right vertebral artery is dominant. Other findings: Likely status post thyroidectomy. Bilateral breast implants. 6 mm right upper lobe pu lmonary nodule, suggestion of spiculated margins, demonstrating interval growth. IMPRESSION: Findings of possible dissection, beginning at the origin of the left vertebral artery, extending mini faviola into the left subclavian artery, and throughout the length of the left vertebral artery. Recomm end MRA of the head and neck and MRI of the brain for further evaluation. No large vessel intracranial occlusion, high-grade intracranial stenosis, or aneurysm. No carotid artery occlusion, dissection, or significant stenosis. Enlarging right upper lobe pulmonary nodule, consider PET/CT, tissue sampling, or resection. Concern for dissection reported telephonically to Dr. Ortiz by Dr. Maurer at 7:54 PM on 12/27/2023. Reviewed, dictated and finalized at location K. UTING MACHINE OPERATOR IMPRESSION: Findings of possible dissection, beginning at the origin of the left vertebral artery, extending minimally into the left subclavian artery, and throughout the length of the left vertebral artery. Recommend MRA of the head and neck and MR I of the brain for further evaluation. No large vessel intracranial occlusion, high-grade intracranial stenosis, or an eurysm. No carotid artery occlusion, dissection, or significant stenosis. Enlarging right upper lobe pulmonary nodule, consider PET/CT, tissue sampling, or resection. Concern for dissection reported telephonically to Dr. Ortiz by Dr. Maurer at 7:54 PM on 12/27/2023.
--- NOTE | ~2023-12-27 | MR_ITS ---
EXAMINATION: MRA brain wo con, MRA neck wo/w con DATE: 12/28/2023 09:52 INDICATION: Headache. Vertebral artery dissection. TECHNIQUE: Magnetic resonance angiography (MRA) of the brain was performed without intravenous contra st with T1-weighted SPGR by the 3D [id number] technique. MRA of the neck was performed without an d with 19 mL Multihance intravenous contrast. Sequences included axial 2D-time of flight T1-weighted FSPGR and coronal T1-weighted FSPGR without and with intravenous contrast. COMPARISON: None. FINDINGS: Head MRA: The bilateral intracranial portions of the internal carotid arteries, the basilar artery and the bila teral A1, M1 and P1 segments are patent with no evident hemodynamically significant stenosis. The lef t P1 segment is diminutive with collateral flow supplied to the left posterior cerebral artery via a larger caliber patent left posterior communicating artery. The right vertebral artery is dominant fro m the distalmost portion of the bilateral vertebral arteries are included within the field of imaging on this study. No intracranial aneurysms identified. Neck MRA: Suboptimal timing of the phase of contrast on the post contrast imaging with one sequence obtained du ring the pulmonary venous phase and the second with the peak of the contrast bolus in the venous phas e. There is scattered atherosclerotic plaque on both the left and right common carotid arteries with up to 50% stenosis at the mid right common carotid artery and with <50% stenosis along the left commo n carotid artery. There is small amount of atherosclerotic plaque with 0% stenosis at the left and ri ght carotid bulbs by NASCET criteria. Subtle linear filling defect seen within the left subclavian ar juve in the region of the takeoff of the left vertebral artery corresponding to the short dissection evident on the prior CT angiogram. The right vertebral artery is dominant with no hemodynamically sig nificant stenosis on the right vertebral artery. The left vertebral artery is diminutive, essentially indiscernible on multiple axial images suggesting superimposed stenosis however the diameter of the vessel is too small relative to the resolution of MRI to assess for degree of stenosis. IMPRESSION: 1. No evident hemodynamically significant stenosis or aneurysm of the central intracranial arteries. 2. 50% stenosis at the mid right common carotid artery and scattered atherosclerotic plaque with <50% stenosis along the left common carotid artery. 0% stenosis at the bilateral carotid bulbs. 3. Redemonstration of a small dissection flap at the left subclavian artery at the level of the takeo ff of the diminutive left vertebral artery. No hemodynamically significant stenosis along the dominan t right vertebral artery. Reviewed, dictated and finalized at location A. ESTATE AGENT IMPRESSION: 1. No evident hemodynamically significant stenosis or aneurysm of the central i ntracranial arteries. 2. 50% stenosis at the mid right common carotid artery and scattered atheroscle rotic plaque with <50% stenosis along the left common carotid artery. 0% stenos is at the bilateral carotid bulbs. 3. Redemonstration of a small dissection flap at the left subclavian artery at the level of the takeoff of the diminutive left vertebral artery. No hemodynami jonathan significant stenosis along the dominant right vertebral artery.
[2023-12-27 16:53] LABS: Basophils Percent Auto 0.4 % (0.2-1.2); Eosinophils Absolute Auto 0.3 K/mm3 (0-0.3); Eosinophils Percent Auto 3.6 % (0-4.4); Hematocrit 38.2 % (37.0-47.0); Immature Granulocyte Absolute 0.03 K/mm3 (0.00-0.031); Immature Granulocyte Percent A 0.4 % (0-0.5); Lymphocytes Absolute Auto 2.12 K/mm3 (0.9-3.2); Lymphocytes Percent Auto 26.1 % (18.3-44.2); Mean Corpuscular HGB Conc 31.4 g/dl (32-36); Mean Corpuscular Hemoglobin 29.9 pg (26-34); Mean Platelet Volume 8.9 fl (7.4-10.4); Monocytes Absolute Auto 0.4 K/mm3 (0.1-0.6); Monocytes Percent Auto 5.3 % (2.6-8.5); Neutrophils Absolute Auto 5.2 K/mm3 (1.3-6.7); Neutrophils Percent Auto 64.2 % (45.5-73.1); Platelet Count Result 187 k/mm3 (150-375); Red Blood Count 4.02 M/mm3 (4.2-5.4); Red Cell Distribution Width 15.3 % (11.5-14.5); White Blood Count 8.1 K/mm3 (4.5-10.0)
[2023-12-27 17:03] LABS: Alanine Aminotransferase 20 U/L (6-35); Albumin Level 4.3 g/dL (3.5-5.1); Alkaline Phosphatase 57 U/L (38-126); Anion Gap 6 mmol/L (8-16); Aspartate Amino Transferase 33 U/L (14-36); Bilirubin,Total 0.7 mg/dL (0.2-1.3); Blood Urea Nitrogen 25 mg/dL (7-17); Calcium 9.4 mg/dL (8.4-10.2); Carbon Dioxide 28 mmol/L (22-30); Chloride 106 mmol/L (98-107); Estimated CRCL calculation 33 ml/min; Estimated Glomerular Filt Rate 34; Glucose 102 mg/dL (65-110); Lipase 272 U/L (23-300); Potassium 4.6 mmol/L (3.4-5.0); Sodium 140 mmol/L (137-145)
[2023-12-27] MEDS: MORPHINE SULFATE (*CRX) 2 MG/ML INJ IV PUSH (18:00)
--- NOTE | 2023-12-27 18:02 | PC.NURSE ---
Attempted to administer PIV medication when IV access infiltrated. IV d/c intact.
--- NOTE | 2023-12-27 18:19 | ED.GENADULT ---
HPI - General Adult General Chief complaint: Headache Stated complaint: headache Time Seen by Provider: 12/27/23 16:15 History of Present Illness HPI narrative: patient is a 73-year-old female who presents ER with sudden onset headache. Occurred this morning when she woke up. Reports it was fireworks for just couple of seconds. Since then she has had aching pain behind her left eye. Waxes and wanes in intensity. No alleviating factors. No numbness or weakness to normal leg. No slurred speech. Denies history of migraine headache. Patient reports her legs initially felt heavy this morning. She has history of neuropathy to her lower extremities and she gets that feeling often but it was a bit more intense earlier on. patient also reports some colicky right upper quadrant pain. No nausea or vomiting. Related Data Home Medications Medication Instructions Recorded Confirmed upmlfwp-ltufvewws-ljxpdb-zinc 1 tablet PO TID 10/15/22 12/10/22 tablet cholecalciferol (vitamin D3) 50 50 mcg PO DAILY 10/15/22 12/10/22 mcg (2,000 unit) capsule mecobalamin (vitamin B12) 1,000 1,000 mcg PO DAILY 10/15/22 12/10/22 mcg lozenges fluticasone propionate 50 2 spray intranasal BID 12/10/22 12/10/22 mcg/actuation nasal spray,suspension (Flonase Allergy Relief) Allergies Allergy/AdvReac Type Severity Reaction Status Date / Time NSAIDS (Non-Steroidal AdvReac Unknown HX KIDNEY Verified 12/17/22 07:15 Anti-Inflamma DISEASE Review of Systems Review of Systems: All systems reviewed & are unremarkable except as noted in HPI and below Constitutional: Constitutional: Reports no additional constitutional complaints Eyes: Eyes: Reports no additional eye complaints ENT: Reports system reviewed and no additional complaints, except as documented Cardiovascular: Cardiovascular: Reports no additional cardiovascular complaints Respiratory: Respiratory: Reports no additional respiratory complaints Gastrointestinal: Gastrointestinal: Reports abdominal pain, Denies nausea and Denies vomiting Genitourinary: Genitourinary: Reports no additional female genitourinary complaints Neurologic: Denies dizziness, Denies syncope, Reports headache(s), Denies focal weakness and Denies numbness PMFSH Past Medical History Medical History Acquired hypothyroidism Anxiety BRCA gene mutation positive Chronic obstructive pulmonary disease Chronic pain syndrome Displacement of breast implant Essential hypertension Gastroesophageal reflux disease Generalized anxiety disorder GERD (gastroesophageal reflux disease) High cholesterol History of gout History of ovarian cancer Hx of ovarian cancer Hypothyroidism Kidney disease Mixed hyperlipidemia GISSEL (obstructive sleep apnea) Osteoporosis PAD (peripheral artery disease) 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 Pulmonary emphysema Stage 3 chronic kidney disease Vitamin D deficiency, unspecified Surgical History Surgical History H/O dilation and curettage H/O foot surgery H/O: hysterectomy History of breast surgery History of prophylactic mastectomy of both breasts Hx of bilateral mastectomy Hx of BSO (bilateral salpingo-oophorectomy) Family History Family History Sibling Family history of malignant neoplasm of breast in first degree relative Family history of cardiovascular disease Family history of malignant neoplasm of breast Family history of malignant neoplasm of ovary Mother Family history of congestive heart failure Family history of obesity Family history of osteoarthritis Family history of anemia Family history of cardiovascular disease Cerebrovascular accident Father Family history of Parkinson's disease Family history of cardiovascular di
--- NOTE | 2023-12-27 19:14 | PC.NURSE ---
Report given to Cat RN, all questions answered
--- NOTE | 2023-12-27 19:18 | PC.NURSE ---
Report received from VASQUEZ Leyva. Assumed care of patient at this time. Patient back from CT and was informed by warehouse technician that patients IV blew after her scan.
[2023-12-27] MEDS: ASPIRIN 81 MG CHEWABLE TABLET PO (20:36)
--- NOTE | 2023-12-27 20:54 | ECG_ITS ---
Measurements Intervals [place] Rate: 59 P: 63 IA: 152 QRS: 9 QRSD: 93 T: 97 QT: 450 QTc: 448 Interpretive Statements SINUS BRADYCARDIA NONSPECIFIC T-WAVE ABNORMALITY ABNORMAL ECG COMPARED TO ECG 09/14/2021 08:18:08 HEART RATE DECREASED, NO OTHER CHANGE Electronically Signed On 12-28-2023 8:21:28 ARCHITECTURAL JOB CAPTAIN by Darrell Pal M.D.
--- NOTE | 2023-12-27 21:12 | PM.IMHP ---
H&P: HPI History of Present Illness Date/Time: 12/27/23 21:12 Chief Complaint: headache Narrative: Patient is a 73-year-old female who presents ER with sudden onset headache when she woke up in the morning today.? She stated that headache was severe for couple of minutes.?then just aching pain behind her left eye.? Waxes and wanes in intensity.? No alleviating factors.? No numbness or weakness to normal leg.? No slurred speech.? Denies history of migraine headache.? Patient reports her legs initially felt heavy this morning.? She has history of neuropathy to her lower extremities and she gets that feeling often but it was a bit more intense earlier on. patient also reports some colicky right upper quadrant pain.? No nausea or vomiting. 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 Patient stated that she is feeling much better, rated headache currently at 4/10, denied any focal neurological deficit Review of Systems Review of Systems: All systems reviewed & are unremarkable except as noted in HPI and below PMFSH Past Medical History Medical History Acquired hypothyroidism Anxiety BRCA gene mutation positive Chronic obstructive pulmonary disease Chronic pain syndrome Displacement of breast implant Essential hypertension Gastroesophageal reflux disease Generalized anxiety disorder GERD (gastroesophageal reflux disease) High cholesterol History of gout History of ovarian cancer Hx of ovarian cancer Hypothyroidism Kidney disease Mixed hyperlipidemia GISSEL (obstructive sleep apnea) Osteoporosis PAD (peripheral artery disease) 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 Pulmonary emphysema Stage 3 chronic kidney disease Vitamin D deficiency, unspecified Surgical History Surgical History H/O dilation and curettage H/O foot surgery H/O: hysterectomy History of breast surgery History of prophylactic mastectomy of both breasts Hx of bilateral mastectomy Hx of BSO (bilateral salpingo-oophorectomy) Family History Family History Sibling Family history of malignant neoplasm of breast in first degree relative Family history of cardiovascular disease Family history of malignant neoplasm of breast Family history of malignant neoplasm of ovary Mother Family history of congestive heart failure Family history of obesity Family history of osteoarthritis Family history of anemia Family history of cardiovascular disease Cerebrovascular accident Father Family history of Parkinson's disease Family history of cardiovascular disease Family history of glaucoma Family history of dementia, Onset Age: 92 Other Depression Family history of arthritis Family history of gout Family history of heart disease in male family member before age 55 Family history of malignant neoplasm Hypertension Social History Social History Smoking packs per day: 1 Smoking cigarettes per day: 20.0 Years smoked: 10 Smoking pack-years: 10.00 Smoking status: Former smoker Tobacco type: cigarettes Second hand tobacco smoke exposure: Yes Smoking end date: 11/11/78 Alcohol intake: never Substance use: current Substance use type: marijuana Last use: 1996 Do You Feel Safe in your Home?: Yes Lack of Transportation: No Lack of Food: Never True Current Housing: I Have Housing Concerned About Future Housing: No Difficulty Paying Gas/Electric Bills: No Difficulty Paying for Meds: No Bettina
[2023-12-27] MEDS: HYDROcodone/acetaminophen (*CRX) 5-325 MG TABLET 1 TAB PO (22:54)
--- NOTE | 2023-12-27 23:02 | PC.NURSE ---
Patient given water and sandwich upon request.
[2023-12-28 04:00] VITALS: PULSE 65
[2023-12-28 05:03] VITALS: BP 139/52; PULSE 76; RESP 16; TEMP 36.4; O2SAT 98
[2023-12-28 06:32] LABS: Basophils Percent Auto 0.6 % (0.2-1.2); Eosinophils Absolute Auto 0.4 K/mm3 (0-0.3); Eosinophils Percent Auto 5.7 % (0-4.4); Hematocrit 34.5 % (37.0-47.0); Hemoglobin 10.9 g/dL (12.0-15.0); Immature Granulocyte Absolute 0.02 K/mm3 (0.00-0.031); Immature Granulocyte Percent A 0.3 % (0-0.5); Lymphocytes Absolute Auto 1.98 K/mm3 (0.9-3.2); Mean Corpuscular HGB Conc 31.6 g/dl (32-36); Mean Corpuscular Hemoglobin 29.9 pg (26-34); Mean Corpuscular Volume 94.8 fl (80-100); Mean Platelet Volume 8.9 fl (7.4-10.4); Monocytes Absolute Auto 0.4 K/mm3 (0.1-0.6); Monocytes Percent Auto 6.8 % (2.6-8.5); Neutrophils Absolute Auto 3.4 K/mm3 (1.3-6.7); Neutrophils Percent Auto 54.6 % (45.5-73.1); Platelet Count Result 162 k/mm3 (150-375); Red Blood Count 3.64 M/mm3 (4.2-5.4); Red Cell Distribution Width 15.2 % (11.5-14.5); White Blood Count 6.2 K/mm3 (4.5-10.0)
[2023-12-28 06:41] LABS: Anion Gap 5 mmol/L (8-16); Blood Urea Nitrogen 25 mg/dL (7-17); Carbon Dioxide 29 mmol/L (22-30); Chloride 104 mmol/L (98-107); Estimated CRCL calculation 36 ml/min; Estimated Glomerular Filt Rate 37; Glucose 105 mg/dL (65-110); Potassium 4.3 mmol/L (3.4-5.0); Sodium 138 mmol/L (137-145)
[2023-12-28] MEDS: HYDROcodone/acetaminophen (*CRX) 5-325 MG TABLET 1 TAB PO ×2 (07:06→15:28)
[2023-12-28] MEDS: LEVOTHYROXINE SODIUM 88 MCG TABLET PO (07:06)
[2023-12-28 08:00] VITALS: PULSE 80
--- NOTE | 2023-12-28 08:28 | PM.IMPN ---
Progress Note: A&P Assessment and Plan (1) Dissection of vertebral artery: Code(s): I77.74 - Dissection of vertebral artery Status: Acute Assessment and Plan: CTA head/neck on admission showing possible dissection, beginning at the origin of the left vertebral artery, extending minimally into the left subclavian artery, and throughout the length of the left vertebral artery. MRA of the head and neck and MRI of the brain recommended. ED discussed case with [facility] stroke team Dr. Taylor and he recommended baby aspirin for 6 months and soft cervical collar for couple of days. He did not recommended transfer to tertiary care center at that time. Neurology consulted. She is already on Crestor high dose. Spoke with [facility] (Dr Olvera) and case discussed. He has graciously accepted the patient in transfer but no bed available He agreed with MRI/MRA so will order this. Check lipid and A1c. Discussed with Neuro. Continue ASA (2) Acute headache: Code(s): R51.9 - Headache, unspecified Status: Acute Assessment and Plan: Headache better. [place] related to above. (3) Stage 3 chronic kidney disease: Qualifiers: Chronic kidney disease stage 3 subtype: stage 3a (GFR 45-59) Qualified Code(s): N18.31 - Chronic kidney disease, stage 3a Code(s): N18.3 - Chronic kidney disease, stage 3 (moderate) Status: Acute Assessment and Plan: Creatinine 1.4 admission. This is within her baseline. Continue to monitor since she did receive contrast yesterday (4) Essential hypertension: Code(s): I10 - Essential (primary) hypertension Status: Acute Assessment and Plan: Patient's blood pressure was reviewed on 12/28 Blood pressure was mildly elevated but better now. No anti-HTN medications listed. Will continue to follow Plan DVT prophylaxis - SCDs Code status - full Subjective Date/time seen: 12/28/23 08:28 Interval history: 73yo female, sleep apnea, peripheral arterial disease and CKD here for headache and found vertebral artery dissection. Patient's headaches better today.. She denies any trauma to the neck or shoulders. No numbness, tingling or weakness in her extremities. 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 Exam Narrative: AF 97.6 139/52 76 16 98% ra Gen - NARD Neck -soft collar in place Chest - CTA bilaterally, nml RR CV - RRR S1/S2 Abd - Soft, NT/ND, Positive BS Ext - No pedal edema Neuro - Alert and oriented. Nonfocal exam. Psych - Nml mood and affect Skin - Warm and dry Objective Data Vital Signs Vital Signs: Vital Signs - 24 hr 12/27/23 12:16 12/27/23 16:19 12/27/23 18:03 Temperature 96.6 F L Pulse Rate 71 67 64 Respiratory Rate 18 14 16 Blood Pressure 114/42 L 138/62 142/52 H Pulse Oximetry 95 99 98 Oxygen Delivery Room Air 12/27/23 20:32 12/27/23 20:26 12/27/23 20:30 Temperature 97.8 F Pulse Rate 62 71 65 Respiratory Rate 17 16 13 Blood Pressure 159/79 H Pulse Oximetry 100 Oxygen Delivery 12/27/23 20:33 12/27/23 20:45 12/27/23 21:00 Temperature Pulse Rate 59 L 57 L 59 L Respiratory Rate 17 15 Blood Pressure 159/79 H Pulse Oximetry 99 Oxygen Delivery 12/27/23 21:15 12/27/23 21:30 12/27/23 23:03 Temperature 97.9 F Pulse Rate 60 71 Respiratory Rate 12 19 Blood Pressure 160/53 H Pulse Oximetry 98 99 100 Oxygen Delivery 12/27/23 23:22 12/27/23 23:40 12/28/23 04:00 Temperature 97.8 F Pulse Rate 65 65 65 Respiratory Rate 17 16 Blood Pressure 160/53 H 152/50 H Pulse Oximetry 97 100 Oxygen Delivery 12/28/23 05:03 Temperature 97.6 F Pulse Rate 76 Respiratory Rate 16 Blood Pressure 139/52 L Pulse Oximetry 98 Oxygen Delivery Intake/Output Intake/Output: Intake & Output 12/25/23 12/26/23 12/27/23 12/28/23 23:59 23:59 23:59 23:59 Intake Total 400 Balance 4
--- NOTE | 2023-12-28 10:00 | WPDNEURCNPN ---
Assessment and Plan Assessment and plan (1) Acute headache: Code(s): R51.9 - Headache, unspecified Status: Acute (2) Dissection of vertebral artery: Code(s): I77.74 - Dissection of vertebral artery Status: Acute (3) Essential hypertension: Code(s): I10 - Essential (primary) hypertension Status: Acute Plan Jacki Oreilly is a 73 year old female with a history of ovarian cancer, hypothyroidism, anxiety, COPD, HTN, anxiety, CKD, HLD, GISSEL, PAD presenting due to severe headache. CTA brain/carotid showed possible dissection beginning at the origin of the L vertebral artery, extending in the L subclavian artery. Patient has been accepted to [facility] for transfer since we do not have vascular services here, but is waiting on bed. - In the meantime, we will obtain MRI brain, MRA brain and carotid - Stat CT head and CTA brain/carotid for any change in neuro exam - Continue Aspirin 81mg daily - Continue Crestor 20mg daily - Aim for normotension - Check LDL and A1c -- optimize cardiovascular risk factors - Soft cervical collar is in place Consult date: 12/28/23 Reason for consult: Headache, dissection HPI: Jacki Oreilly is a 73 year old female with a history of ovarian cancer, hypothyroidism, anxiety, COPD, HTN, anxiety, CKD, HLD, GISSEL, PAD presenting due to severe headache.Patient woke up yesterday with a severe headache that lasted for a few minutes, followed by aching pain behind the left eye, that since waxed and waned in intensity. She did not have any focal symptoms such as unilateral numbness or weakness, speech deficit, or vision change. She felt that her legs felt heavier than usual. 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 Patient presented to [place] ED for persistent symptoms. In the ED her EKG showed sinus bradycardia. BP was in the 110-150s systolic. CT head did not show any acute findings. CTA brain/carotid showed possible dissection beginning at the origin of the L vertebral artery, extending in the L subclavian artery. There was no LVO or significant arterial disease. The ER physical discussed the case with the [facility] stroke neurologist, Dr. Taylor -- who recommend soft cervical collar for a few days, MRI brain with MRA brain and neck for better visualization of the dissection, and starting Aspirin 81mg daily. He said that patient did not need any transfer until she were to develop SDH, subarachnoid hemorrhage, or develop new focal symptoms. Patient was subsequently admitted. Dr. Dean and I discussed this morning that since we do not have vascular surgery or neurointerventionalists here at [place], patient should be transferred to a tertiary care center. Dr. Dean discussed the case with stroke neurologist at [facility] -- they have accepted patient but waiting on bed. Patient has been started on aspirin 81mg daily. She already takes Crestor 20mg daily. Her BP has been in the 130-150s since last night. Patient denies any recent history of neck trauma or neck manipulation. She does not smoke. She denies any headache this morning. She has some blurry vision/floaters in the left eye, but she says this has been going on for the past few weeks. She denies any complete loss of vision in the left eye, no other focal deficits as mentioned above. Review of Systems Review of Systems: All systems reviewed & are unremarkable except as noted in HPI and below PMFSH Past Medical History Medical History Acquired hypothyroidism Anxiety BRCA gene mutation positive Chronic obstructive pulmonary disease Chronic pain syndrome Displacement of breast implant Essential hypertension Gastroesophageal reflux disease Generalized anxiety disorder GERD (gastroesophageal reflux disease) High cholesterol History of gout History of ovarian cancer Hx of ovarian cancer Hypothyroidism Kidney disease Mixed hyperlipidemia GISSEL (obstructive sleep apnea) Osteoporosis
[2023-12-28] MEDS: OMEGA 3 POLYUNSAT FATTY ACIDS 1 GM CAP 2 GM PO (11:51)
[2023-12-28] MEDS: ASPIRIN 81 MG ENTERIC TABLET PO (11:51)
[2023-12-28] MEDS: allopurinoL 100 MG TABLET 200 MG PO (11:51)
[2023-12-28] MEDS: ROSUVASTATIN 10 MG TABLET 20 MG PO (11:52)
[2023-12-28] MEDS: PANTOPRAZOLE 40 MG TABLET PO (11:52)
[2023-12-28] MEDS: GABAPENTIN 300 MG CAPSULE PO (11:52)
[2023-12-28] MEDS: PARoxetine 10 MG TABLET PO (11:52)
[2023-12-28] MEDS: CHOLECALCIFEROL 1,000 UNITS TABLET 2000 UNITS PO (11:53)
[2023-12-28] MEDS: CYANOCOBALAMIN 1,000 MCG TABLET 1000 MCG PO (11:53)
[2023-12-28] MEDS: FLUTICASONE PROPIONATE 0.05% NA SPR 16 GM BTL (*BKC) 2 SPRAY NASAL (11:53)
[2023-12-28 14:00] VITALS: BP 113/92; PULSE 65; RESP 16; TEMP 36.9; O2SAT 95
--- NOTE | 2024-01-09 06:59 | PM.TDS ---
Transfer Discharge Sum: Prov Provider Date of admission: 12/27/23 20:49 Primary care physician: Mino Grande, Giovany Admitting clinician: Priya Piper MD Consults: 12/27/23 20:51 Consult to Physician Routine Comment: Consulting Provider: Rena Ireland Reason for consultation: vertebral artery dissection Has provider been notified: Yes DS: Admitting Diagnosis Discharge Date 12/28/23 Admitting Diagnosis Headache DS: Discharge Diagnosis Discharge Diagnosis (1) Dissection of vertebral artery: Code(s): I77.74 - Dissection of vertebral artery Status: Acute (2) Acute headache: Code(s): R51.9 - Headache, unspecified Status: Acute (3) Stage 3 chronic kidney disease: Qualifiers: Chronic kidney disease stage 3 subtype: stage 3a (GFR 45-59) Qualified Code(s): N18.31 - Chronic kidney disease, stage 3a Code(s): N18.3 - Chronic kidney disease, stage 3 (moderate) Status: Acute (4) Essential hypertension: Code(s): I10 - Essential (primary) hypertension Status: Acute Transfer Discharge Sum: Med Medications Active and Home Medications: Home Medications allopurinol 100 mg tablet 200 mg PO DAILY #180 tabs 03/05/22 [Rx Confirmed 12/28/23] paroxetine HCl 10 mg tablet 10 mg PO DAILY #90 tabs 03/05/22 [Rx Confirmed 12/28/23] omeprazole 40 mg capsule,delayed release 40 mg PO BID #180 caps 03/30/22 [Rx Confirmed 12/28/23] levothyroxine 88 mcg tablet (Synthroid) 88 mcg PO DAILY #90 tabs 06/20/22 [Rx Confirmed 12/28/23] rosuvastatin 20 mg tablet (Crestor) 20 mg PO DAILY #90 tabs 06/20/22 [Rx Confirmed 12/28/23] trazodone 100 mg tablet 100 mg PO HS #90 tabs 09/14/22 [Rx Confirmed 12/28/23] albuterol sulfate 90 mcg/actuation aerosol inhaler 2 puff inhalation QID PRN shortness of breath or wheezing #6.7 grams 09/22/22 [Rx Confirmed 12/28/23] dibmebl-ggvdmdtxo-vuqirg-zinc tablet 1 tablet PO TID 10/15/22 [History Confirmed 12/28/23] cholecalciferol (vitamin D3) 50 mcg (2,000 unit) capsule 50 mcg PO DAILY 10/15/22 [History Confirmed 12/28/23] gabapentin 300 mg capsule 300 mg PO TID #360 caps 10/15/22 [Rx Confirmed 12/28/23] mecobalamin (vitamin B12) 1,000 mcg lozenges 1,000 mcg PO DAILY 10/15/22 [History Confirmed 12/28/23] icosapent ethyl 1 gram capsule (Vascepa) 2 g PO BID #360 caps 10/26/22 [Rx Confirmed 12/28/23] fluticasone propionate 50 mcg/actuation nasal spray,suspension (Flonase Allergy Relief) 2 spray intranasal BID 12/10/22 [History Confirmed 12/28/23] Transfer Discharge Sum: Hosp Hospital Course Hospital course: 73yo female, sleep apnea, peripheral arterial disease and CKD here for headache and found vertebral artery dissection. Please see H&P for details. CTA head/neck on admission showing possible dissection, beginning at the origin of the left vertebral artery, extending minimally into the left subclavian artery, and throughout the length of the left vertebral artery. MRA of the head and neck and MRI of the brain recommended. ED discussed case with [facility] stroke team Dr. Taylor and he recommended baby aspirin for 6 months and soft cervical collar for couple of days. He did not recommended transfer to tertiary care center at that time. Neurology consulted here. She was already on Crestor high dose. MRI/MRA head and neck performed showin. No evident hemodynamically significant stenosis or aneurysm of the central intracranial arteries. 2. 50% stenosis at the mid right common carotid artery and scattered atherosclerotic plaque with <50% stenosis along the left common carotid artery. 0% stenosis at the bilateral carotid bulbs. 3. Remonstration of a small dissection flap at the left subclavian artery at the level of the takeoff of the diminutive left vertebral artery. No hemodynamically significant stenosis along the dominant right vertebral artery. Spoke with [facility] (Dr Olvera) and case discussed. He graciously accepted the patient
== END 2023-12-28 15:31 ==
LOC: ANHED 20:54 → ANH3MEDSUR 23:43
PROVIDERS: Admitting Provider Student in an Organized Health Care Education/Training Program; Emergency Provider Emergency Medicine; PCP Family Medicine; Visit Provider Student in an Organized Health Care Education/Training Program
DX: I77.74 Dissection of vertebral artery (principal); G62.0 Drug-induced polyneuropathy; K86.89 Other specified diseases of pancreas; E03.9 Hypothyroidism, unspecified; F41.1 Generalized anxiety disorder; G89.4 Chronic pain syndrome; J43.9 Emphysema, unspecified; R91.1 Solitary pulmonary nodule; I12.9 Hypertensive chronic kidney disease with stage 1 through stage 4 chronic kidney disease, or unspecified chronic kidney disease; N18.31 Chronic kidney disease, stage 3a; Z15.01 Genetic susceptibility to malignant neoplasm of breast; K21.9 Gastro-esophageal reflux disease without esophagitis; M10.9 Gout, unspecified; R94.31 Abnormal electrocardiogram [ECG] [EKG]; E78.00 Pure hypercholesterolemia, unspecified; Z85.43 Personal history of malignant neoplasm of ovary; G47.33 Obstructive sleep apnea (adult) (pediatric); M81.0 Age-related osteoporosis without current pathological fracture; M15.9 Polyosteoarthritis, unspecified; E55.9 Vitamin D deficiency, unspecified; Z87.891 Personal history of nicotine dependence; Z90.13 Acquired absence of bilateral breasts and nipples; Z80.3 Family history of malignant neoplasm of breast; Z80.41 Family history of malignant neoplasm of ovary; Z82.49 Family history of ischemic heart disease and other diseases of the circulatory system; Z79.51 Long term (current) use of inhaled steroids; Z79.899 Other long term (current) drug therapy
CPT/HCPCS: 36415; 70496; 70498; 70544; 70549; 70553; 76705; 80048; 80053; 83690; 85025; 93005; 96372; 99285; A9270; A9577; G0378; J2270; Q9967